=== PATIENT | male | born 1945 | race Caucasian/White ===

== ENCOUNTER 2017-11-11 01:39 | Inpatient (IN) | payer MEDICARE ==
[2017-11-11] MEDS ORDERED: niCARdipine 20MG In NaCl 0 MG/0 ML BAG ONE (02:05)
[2017-11-11] MEDS ORDERED: niCARdipine 20MG In NaCl 20 MG/200 ML BAG ONE (02:06)
[2017-11-11 02:26] LABS: #Basophils 0.1 thou/uL (0.0-0.2); #Eosinphils 0.1 thou/uL (0.0-0.7); #Lymphocytes 1.3 thou/uL (1.20-3.40); #Monocytes 0.8 thou/uL (0.11-0.59); #Neutrophils 10.2 thou/uL (1.40-6.50); %Basophils 0.7 % (0.0-1.0); %Eosinophils 0.8 % (0.0-10.0); %Lymphocytes 10.2 % (21.0-51.0); %Monocytes 6.5 % (0.0-10.0); %Neutrophils 81.8 % (42.0-75.0); Hemoglobin 13.6 g/dL (14.0-18.0); Mean Corpuscular HGB CONC 33.7 g/dL (32.0-36.0); Mean Corpuscular Hemoglobin 30.9 pg (27.0-31.0); Mean Corpuscular Volume 91.7 fl (80.0-94.0); Mean Platelet Volume 7.4 fL (7.4-10.4); Platelet Count 188 thou/uL (130-400); RBC Distribution Width 12.7 % (11.5-14.5); Red Blood Cell (RBC) Count 4.42 mill/uL (4.70-6.10); White Blood Cell (WBC) Count 12.5 thou/uL (4.8-10.8)
[2017-11-11 02:30] LABS: INR-International Normal Ratio 1.1; Prothrombin Time 14.6 SEC (12.0-14.7)
[2017-11-11 02:42] LABS: Bilirubin Negative (Negative); Blood, Urine Small (Negative); Clarity CLEAR (Clear); Glucose, Urine (Dipstick) Negative (Negative); Leukocyte Negative (Negative); Nitrite Negative (Negative); Protein, Urine (Dipstick) 30 mg/dL (Neg-Trace); Specific Gravity, Urine 1.021 (1.002-1.036); Urobilinogen 0.2 mg/dL (0.2-1.0)
[2017-11-11] MEDS ORDERED: Clopidogrel Bisulfate 75 MG TAB ONE (02:49)
[2017-11-11 02:52] LABS: Amphetamine Not Detected (NotDetected); Barbiturates Screen Not Detected (NotDetected); Benzodiazepine Screen Not Detected (NotDetected); Cocaine Metabolite Screen Not Detected (NotDetected); Medtox Control Line Valid? VALID (VALID); Medtox Reader # READER 4; Methadone Not Detected (NotDetected); Methamphetamine Not Detected (NotDetected); Opiate Screen Not Detected (NotDetected); Oxycodone Screen Not Detected (NotDetected); Phencyclidine (PCP) Not Detected (NotDetected); THC/Cannabinoid Screen Not Detected (NotDetected); Tricyclic Screen Not Detected (NotDetected)
[2017-11-11 02:53] LABS: Bacteria/HPF None Seen HPF (None Seen); Crystals/HPF None Seen HPF (Negative); Hyaline Casts/LPF NONE SEEN LPF (0-3 Hyaline); RBC/HPF None Seen HPF (0-3); Renal Epithelial None Seen HPF (0-3); Squamous Epithelial 0-3 HPF (0-3); Transitional Epithelial NONE SEEN HPF (0-3); WBC/HPF None Seen HPF (0-3); Yeast-All Forms None Seen HPF (None Seen)
[2017-11-11 03:00] LABS: ALT (SGPT) 13 U/L (8-55); AST (SGOT) 16 U/L (5-34); Albumin 3.7 g/dL (3.4-4.8); Alkaline Phosphatase 72 U/L (40-150); Anion Gap 10 mmol/L (10-20); BUN (Urea Nitrogen) 20 mg/dL (8.4-25.7); Bilirubin, Total 0.5 mg/dL (0.2-1.2); CK (CPK) 122 U/L (30-200); Calc. Creatinine Clearance 0 mL/min (70-130); Carbon Dioxide 22 mmol/L (23-31); Chloride 97 mmol/L (98-107); Estimated GFR-MDRD 75; Globulin 2.8 g/dL (2.4-3.5); Glucose 116 mg/dL (80-115); Lipase 24 U/L (8-78); Potassium 3.8 mmol/L (3.5-5.1); Protein, Total 6.5 g/dL (5.8-8.1); Sodium 125 mmol/L (136-145)
[2017-11-11 03:02] LABS: Acetaminophen Less than 6.0 mcg/mL (10.0-30.0); Alcohol Less than 10 mg/dL (Less than 10); Salicylate Less than 8.0 mg/dL (15.0-30.0)
[2017-11-11 03:03] LABS: CKMB 4.3 ng/mL (0-6.6); Troponin I 0.018 ng/mL (< 0.028)
[2017-11-11] MEDS ORDERED: Lorazepam 2 MG/ML VIAL ONE (03:03)
[2017-11-11 05:32] LABS: Troponin I 0.022 ng/mL (< 0.028)
[2017-11-11] MEDS ORDERED: Ondansetron ODT 4 MG TAB PO PRN (05:46)
[2017-11-11] MEDS ORDERED: Ondansetron HCl/PF 4 MG/2 ML Vial IVP PRN (05:46)
[2017-11-11] MEDS ORDERED: Acetaminophen 325 MG TAB PO PRN (05:46)
[2017-11-11] MEDS ORDERED: Enoxaparin Sodium 30 MG/0.3 ML SYRINGE SC SCH (05:46)
[2017-11-11] MEDS ORDERED: Carvedilol 25 MG TAB PO SCH (06:00)
[2017-11-11] MEDS ORDERED: Amlodipine 5 MG TAB PO SCH (06:00)
[2017-11-11] MEDS ORDERED: Albuterol Sulfate 2.5 mg/3 ml Neb NEB PRN (06:08)
[2017-11-11 06:17] LABS: Anion Gap 12 mmol/L (10-20); BUN (Urea Nitrogen) 17 mg/dL (8.4-25.7); Calc. Creatinine Clearance 0 mL/min (70-130); Calcium 9.5 mg/dL (7.8-10.44); Carbon Dioxide 22 mmol/L (23-31); Cardiac Risk 5.4 (Less than 4.5); Chloride 102 mmol/L (98-107); Cholesterol 249 mg/dl (< 200 Desired); Estimated GFR-MDRD 77; Glucose 124 mg/dL (80-115); HDL Cholesterol 46 mg/dL (>60 Neg Risk); LDL Cholesterol, Calculated 182 mg/dL; Potassium 3.8 mmol/L (3.5-5.1); Sodium 132 mmol/L (136-145); Triglycerides 104 mg/dL (Less than 150)
[2017-11-11 06:19] LABS: #Eosinphils 0.1 thou/uL (0.0-0.7); #Lymphocytes 1.9 thou/uL (1.20-3.40); #Monocytes 0.8 thou/uL (0.11-0.59); #Neutrophils 9.6 thou/uL (1.40-6.50); %Basophils 0.1 % (0.0-1.0); %Eosinophils 1.1 % (0.0-10.0); %Lymphocytes 15.3 % (21.0-51.0); %Monocytes 6.3 % (0.0-10.0); %Neutrophils 77.2 % (42.0-75.0); Hemoglobin 14.5 g/dL (14.0-18.0); Mean Corpuscular HGB CONC 33.5 g/dL (32.0-36.0); Mean Corpuscular Hemoglobin 30.6 pg (27.0-31.0); Mean Corpuscular Volume 91.5 fl (80.0-94.0); Mean Platelet Volume 7.7 fL (7.4-10.4); Platelet Count 196 thou/uL (130-400); RBC Distribution Width 12.6 % (11.5-14.5); Red Blood Cell (RBC) Count 4.74 mill/uL (4.70-6.10); White Blood Cell (WBC) Count 12.4 thou/uL (4.8-10.8)
--- NOTE | 2017-11-11 07:07 | CT ---
BRAIN PERFUSION: HISTORY: A 72-year-old male with right-sided facial droop, right-sided weakness, an abnormal gait, and slurred speech. TECHNIQUE: Axial blood volume, blood flow, mean transient time, and IRF brain perfusion imaging is performed, fo llowing contrast injection. FINDINGS: There is no evidence of abnormal brain perfusion noted. IMPRESSION: Normal CT brain perfusion. No evidence for abnormal infarct or penumbra. POS: [facility]
--- NOTE | 2017-11-11 07:14 | CT ---
PRELIMINARY REPORT/[facility]/EMERGENCY AFTER HOURS PROCEDURE: EXAM: CT Head Without Intravenous Contrast EXAM DATE/TIME: 11/11/2017 1:46 AM CLINICAL HISTORY: 72 years old, male; Signs and symptoms; Speech disturbance and weakness, extremity and weakness, faci al; Right; Slurred speech; Patient HX: *stroke alert*. M72, last seen normal 1900, right sided facial droop, right sided weakness, abnormal gate, slurred speech. TECHNIQUE: Axial computed tomography images of the head/brain without intravenous contrast. COMPARISON: No relevant prior studies available. FINDINGS: Brain: Minimal decreased attenuation of the supratentorial white matter is likely secondary to chroni c microvascular ischemia. No hemorrhage. Ventricles: Ventricular and subarachnoid spaces are age appropriate. Bones/joints: Unremarkable. No acute fracture. Soft tissues: Unremarkable. Vasculature: Intracranial vascular calcification. Sinuses: Mild paranasal sinus disease. Mastoid air cells: Unremarkable as visualized. No mastoid effusion. IMPRESSION: No acute intracranial abnormality. If clinical concern persists, MRI may be considered. Thank you for allowing us to participate in the care of your patient. Dictated and Authenticated by: Ryland Darden MD 11/11/2017 1:54 AM Central Time ([place] & [place]) FINAL REPORT EMERGENCY AFTER HOURS BRAIN CT SCAN WITHOUT IV CONTRAST: Date: 11/11/17 Time: 0147 hours FINDINGS/IMPRESSION: No mass, bleed, or other acute process. The report of the brain, as well as the head CTA and neck CTA were discussed with Dr. Betancourt by [facility]iology at 0221 hours on 11/11/17. Report in agreement with preliminary report given on-call by Remy. POS: [facility]
--- NOTE | 2017-11-11 07:31 | HP ---
PRIMARY CARE PHYSICIAN: Dr. Avril Stoddard, though he says he has not been to the doctor in many year s. DATE OF ADMISSION: 11/11/2017 TIME OF SERVICE: 0555 CHIEF COMPLAINT: Facial droop. HISTORY OF PRESENT ILLNESS: Mr. Fernández is a 72-year-old white male with no known past medical histo ry who presents to the emergency department via EMS for a facial droop. The patient said he was last well around 7:00 p.m. and he had acute onset of right arm paralysis, rig ht leg weakness and facial droop. He was talking on the phone to his daughter and she started notici ng he had slurred speech. She called EMS who came up to his house. On arrival they found him to hav e a right facial droop. His right upper extremity felt numb and heavy. He could not move it. His l eft leg was weak. He denies any chest pain, shortness of breath. No fevers or chills, no nausea, vo miting, diarrhea, constipation. He has had no headache, no visual changes. Blood pressure has been in the 200s/100s. Symptoms seem to improve with a nitro. The ER activated t he t-PA protocol and Dr. Guo did not think he was a candidate; therefore no t-PA was given. He was put on a Cardene drip prior to that. Blood pressure has been in the 170s to 180s. We were called f or admission. He did have a CT and CT angiogram with perfusion study that showed a possible defect i n the left MCA distribution. He was given Tylenol, Plavix, and a 500 mL bolus and he is allergic to ASPIRIN, did not receive any aspirin. PAST MEDICAL HISTORY: None. PAST SURGICAL HISTORY: Hemorrhoidectomy, multiple tooth extractions and tonsillectomy remotely. HOME MEDICATIONS: None. ALLERGIES: ASPIRIN causes a rash. FAMILY HISTORY: Negative for clotting or bleeding disorder. No immune dysfunction, no premature str okes or coronary disease. SOCIAL HISTORY: Significant for [id number]-half pack of cigarettes per day for the last 50+ years. Petty wu used to drink about a half-gallon of liquor or beer a day and did that for many years until he quit on 01/11/1989. No alcohol or IV drug use at present. REVIEW OF SYSTEMS: A 10-point review of systems was performed, negative for all systems except as pe r HPI. PHYSICAL EXAMINATION: VITAL SIGNS: Temperature is afebrile, pulse 80, blood pressure 210/103, respiratory rate 18, sat 96% on room air. GENERAL: He is awake. He is alert. He is oriented x3. He has a visible left facial droop. He is in no acute distress. HEENT: Normocephalic, atraumatic. Pupils equal and reactive to light bilaterally, mucosa moist. No visible lesion or thrush. NECK: Supple, without lymphadenopathy, JVD or thyromegaly. Normal carotid upstrokes without bruits. CHEST: Lungs had good air movement bilaterally. He has a prolonged expiratory phase and diffuse whe ezing throughout. He has no crackles. CARDIOVASCULAR: Tachycardic in the 90s-100s, but regular. There is normal S1, S2. There is no S3, S4. No audible murmurs. ABDOMEN: Soft, it is nontender, nondistended, no mass or organomegaly. He has good bowel sounds. EXTREMITIES: Show no cyanosis, no clubbing. He has got trace edema to the bilateral lower extremiti es. SKIN: Warm, moist and well perfused. He has no other rashes or lesions. MUSCULOSKELETAL: Normal to inspection. Joints appeared normal. He does not have any inflammation o r palpable effusions. NEUROLOGIC: He has a left facial droop that spares the forehead. The remainder of his cranial nerve s appear to be intact. He has got a dense right upper extremity hemiplegia, but says he can feel to light touch throughout his arm. He has a 3-1/2-4/5 strength of his right lower extremity. Left side appears normal. LABORATORY DATA: Sodium is 125, potassium 3.8, chloride 97, bicarbonate 22, BUN 20, creatinine 0.99, glucose 116, and calcium of 9.0. Liver functions are completely within normal limits. CBC showed a white count of 12.5, hemoglobin 13.6, hematocrit of 40.5, and platelet count is 138,000. He has 82% granulocytes and 10% lymphocytes. Cardiac biomarkers were normal. CK-MB of 4.3, troponin I 0.018 followed by 0.022. BNP was 329.7. I NR 1.1 and TSH of 2.47. RADIOGRAPHIC STUDIES: CT and CT angio as above. ASSESSMENT AND PLAN: 1. 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 The patient is allergic to ASPIRIN, bu t did get Plavix. Follow up on the official reports of the CT and CT angio. PT, OT and ST consults have been ordered, will ask Neurology to evaluate. The patient was placed on Plavix and on atorvasta tin 20 mg daily. Consulted case management for rehabilitation and placed a rehab screen. 2. Tobacco abuse. The patient does continue to smoke. He was counseled regarding need for cessatio n. 3. Hypertensive urgency: The patient has stroke symptoms and a very elevated blood pressure. He is on Cardene drip. We will start him on Coreg 12.5 b.i.d. and Norvasc 5 per day and have hydralazine p.r.n. systolic pressure greater than 180. We will try to get him off the Cardene drip. He is curre ntly being admitted to the ICU. 4. Essential hypertension. The patient likely has longstanding hypertension. We will get a 2-D ech ocardiogram to assess cardiac function. 5. Hyponatremia. Sodium is 125. Do not know if this is new or not. We will continue to monitor an d recheck tomorrow.
--- NOTE | 2017-11-11 07:42 | RAD ---
SINGLE VIEW OF THE CHEST: Comparison: 05-14-05 History: Altered mental status. Stroke alert. FINDINGS: Single view of the chest shows a normal sized cardiomediastinal silhouette with atherosclerotic calci fications in the aorta. There is no evidence of consolidation, mass, or pleural effusions. Degenerati ve changes are seen in the spine. IMPRESSION: No evidence of acute cardiopulmonary disease. POS: [facility]
[2017-11-11] MEDS ORDERED: Prevnar 13-Val Conj/PF 0.5 ML SYRINGE IM ONE (08:00)
[2017-11-11] MEDS: hydrALAZINE 20 MG/ML VIAL SLOW IVP PRN ×2 (08:23→15:42)
[2017-11-11] MEDS: Famotidine 20 MG TAB PO SCH ×2 (08:24→20:52)
[2017-11-11] MEDS ORDERED: Aspirin 325 MG TAB PO SCH (09:00)
--- NOTE | 2017-11-11 10:14 | PDOC.EVN ---
Event Note - Event Note Event Note: 72 M admitted with R hemiparesis and facial droop, likely 2/[address] Brain showed no hemorrhage. 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 He had R hemiparsis and facial droop on examination, as well as a severely elevated BP on admission. BP improving, Statin started and patient not on ASA due to allergy. Neurology will review patient. He will likely require an MRI brain and aggressive PT/OT. Will follow neurology and cardiologyrecs.
[2017-11-11] MEDS ORDERED: ISOVUE-370 76%-LOCM 1 ML ONE (14:43)
[2017-11-11] MEDS: Carvedilol 25 MG TAB PO SCH (15:42)
[2017-11-11] MEDS: Atorvastatin Calcium 20 MG TAB PO SCH (20:52)
--- NOTE | 2017-11-11 22:10 | CON ---
DATE OF CONSULTATION: 11/11/2017 NEUROLOGY CONSULTATION CONSULTING PHYSICIAN: Hospitalist service. IMPRESSION: 1. Probable lacunar infarction with right hemiparesis. 2. Tobacco use. 3. Probable hypertension. PLAN: 1. Plavix 75 mg per day. 2. Address hyperlipidemia. 3. Echocardiogram. 4. Rehab screening. HISTORY OF PRESENT ILLNESS: Mr. Rendon is a 72-year-old man who developed right-sided weakness gisel or to admission. He came in and outside the window for tPA and his CTA were negative for any signs o f a clot. There was no sign of hemorrhage on CT. He was admitted to ICU for monitoring. His sympto ms have not improved. He denies history of any similar symptoms. He has not seen a doctor in quite some time and was not taking any medication. PAST MEDICAL HISTORY: Otherwise unknown. ALLERGIES: ASPIRIN. SOCIAL HISTORY: One pack per day tobacco use. REVIEW OF SYSTEMS: No complaint of headache, nausea, vomiting, chest pain, numbness, tingling, doubl e vision, or difficulty swallowing. PHYSICAL EXAMINATION: GENERAL: He is a thin elderly man sitting in a chair in no distress. VITAL SIGNS: Blood pressure 162/63, pulse 80, respirations 20. He is afebrile. HEENT: Pupils equal and reactive. Conjunctivae clear. Oropharynx is clear. NECK: Supple. EXTREMITIES: No cyanosis. NEUROLOGIC: Alert and cooperative. Speech is mildly dysarthric, it was fluent in character though. There is prominent right facial droop. Motor exam showed 0/5 strength in the right arm. He had iris e proximal movement in the right leg. There is no distal movement elicited. Sensation was intact to light touch. No abnormal movements were seen. Gait was not testable. LABORATORY STUDIES: EKG shows normal sinus rhythm. SUMMARY: This gentleman has a fairly dense right hemiparesis likely secondary to small vessel ischem ic event. Agree with treatment and plan beyond this for rehabilitation.
[2017-11-11] MEDS ORDERED: traZODone HCl 50 MG TAB PO SCH (23:15)
[2017-11-12] MEDS: Nicotine 7 MG PATCH TOP SCH ×2 (00:37→23:30)
[2017-11-12 05:34] LABS: #Basophils 0.1 thou/uL (0.0-0.2); #Eosinphils 0.2 thou/uL (0.0-0.7); #Neutrophils 8.1 thou/uL (1.40-6.50); %Basophils 0.5 % (0.0-1.0); %Eosinophils 2.1 % (0.0-10.0); %Lymphocytes 17.8 % (21.0-51.0); %Monocytes 8.4 % (0.0-10.0); %Neutrophils 71.3 % (42.0-75.0); Hemoglobin 14.1 g/dL (14.0-18.0); Mean Corpuscular Hemoglobin 31.3 pg (27.0-31.0); Mean Corpuscular Volume 91.9 fl (80.0-94.0); Mean Platelet Volume 7.2 fL (7.4-10.4); Platelet Count 180 thou/uL (130-400); RBC Distribution Width 12.7 % (11.5-14.5); White Blood Cell (WBC) Count 11.4 thou/uL (4.8-10.8)
[2017-11-12 05:42] LABS: Anion Gap 9 mmol/L (10-20); BUN (Urea Nitrogen) 17 mg/dL (8.4-25.7); Calc. Creatinine Clearance 47 mL/min (70-130); Calcium 9.4 mg/dL (7.8-10.44); Carbon Dioxide 24 mmol/L (23-31); Chloride 102 mmol/L (98-107); Estimated GFR-MDRD 61; Glucose 98 mg/dL (80-115); Potassium 3.9 mmol/L (3.5-5.1); Sodium 131 mmol/L (136-145)
[2017-11-12] MEDS: hydrALAZINE 20 MG/ML VIAL SLOW IVP PRN (07:14)
[2017-11-12] MEDS: Carvedilol 25 MG TAB PO SCH ×2 (07:38→16:58)
[2017-11-12] MEDS: Famotidine 20 MG TAB PO SCH (09:15)
[2017-11-12] MEDS: Amlodipine 5 MG TAB PO SCH (09:15)
[2017-11-12] MEDS: Clopidogrel Bisulfate 75 MG TAB PO SCH (09:16)
[2017-11-12] MEDS: Enoxaparin Sodium 30 MG/0.3 ML SYRINGE SC SCH (09:16)
--- NOTE | 2017-11-12 11:06 | CON ---
DATE OF CONSULTATION: 11/11/2017 HISTORY OF PRESENT ILLNESS: Mr. Fernández is a 72-year-old male. Unfortunately, Mr. Fernández had right-sided weakness and dysarthria that have been present for quite s ome time prior to coming to the hospital. He subsequently was admitted. He was felt to have thrombotic CVA. He did not qualify for TPA because of the time delay in getting to the hospital. He was hypertensive, placed on a Cardene drip. This has been weaned off. He has a left middle cerebral artery abnormality on CT. He was treated with Plavix since he has an aspirin allergy. He is clinically stable at the time of my consultation, had no complaints, although he is worried abo ut getting all of his neurological faculties back. PAST MEDICAL HISTORY: Reportedly unremarkable. He has had a herniorrhaphy and a tonsillectomy in past. SOCIAL HISTORY: He does not have a doctor. He just quit smoking, i.e., right when he came to the hospital. 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 ALLERGIES: He reports ASPIRIN as a drug allergy. FAMILY HISTORY: Negative for lung disease in early age. REVIEW OF SYSTEMS: 10-point review of systems is otherwise negative. PHYSICAL EXAMINATION: VITAL SIGNS: He is afebrile, heart rate 67, respiratory rate is 20, oximetry is 99, blood pressure 1 34/55. NEUROLOGIC: He is flaccid. His right upper extremity is weak. He does have some movement in his ri ght lower extremity. He is dysarthric, but can form words and answers questions reasonably quickly. HEENT: His pupils are equal. Sclerae are anicteric. He has a facial droop. NECK: Supple. No lymphadenopathy. LUNGS: Clear. HEART: Regular rhythm. S1 and S2 are normal. No murmur or gallop. ABDOMEN: Soft and nontender. EXTREMITIES: Without clubbing, cyanosis, or edema. LABORATORY DATA: White count 12.4, hemoglobin 14.5, platelets 196. Sodium 132, potassium 3.8, chloride 102, bicarbonate 22, BUN 17, creatinine 0.96, glucose 124. Drug screen was negative. I am not really sure why he had a drug screen. BNP was 329. IMPRESSION: 1. Thrombotic cerebrovascular accident. 2. Hypertension. PLAN: Supportive care, physical therapy, eventual placement for physical therapy and rehabilitation. He appears to be stable at this time. TIME SPENT: This is a 70-minute consult with greater than 50% of the time spent on the unit coordina ting care.
--- NOTE | 2017-11-12 11:37 | CT ---
PRELIMINARY REPORT/[facility]/EMERGENCY AFTER HOURS PROCEDURE: Addendum created by Ryland Darden MD on 11/11/2017 2:21 AM Central Time ([place]) The findings were ve rbally communicated via telephone conference with ELLIOT FERNANDEZ at 2:21 AM CDT on 11/11/2017. Initial Report created on 11/11/2017 2:18 AM Central Time ([place]) EXAM: CT Angiography Head With Intravenous Contrast CLINICAL HISTORY: 72 years old, male; Signs and symptoms; Speech disturbance and weakness; Slurred speech; Patient HX: *stroke alert*. M72, last seen normal 1900, right sided facial droop, right sided weakness, abnormal gate, slurred speech. TECHNIQUE: Axial computed tomographic angiography images of the head with intravenous contrast using CT angiogra phy protocol. CONTRAST: 100 mL of ISOVUE 370 administered intravenously. COMPARISON: No relevant prior studies available. FINDINGS: Right internal carotid artery: Mild calcification involving the right carotid siphon without signific ant stenosis. No aneurysm. Right anterior cerebral artery: Unremarkable. No occlusion or significant stenosis. No aneurysm. Right middle cerebral artery: Unremarkable. No occlusion or significant stenosis. No aneurysm. Right posterior cerebral artery: Unremarkable. No occlusion or significant stenosis. No aneurysm. Right vertebral artery: Unremarkable as visualized. Left internal carotid artery: Mild calcification involving the left carotid siphon without significan t stenosis. No aneurysm. Left anterior cerebral artery: Unremarkable. No occlusion or significant stenosis. No aneurysm. Left middle cerebral artery: Unremarkable. No occlusion or significant stenosis. No aneurysm. Left posterior cerebral artery: Unremarkable. No occlusion or significant stenosis. No aneurysm. Left vertebral artery: Unremarkable as visualized. Basilar artery: Unremarkable. No occlusion or significant stenosis. No aneurysm. IMPRESSION: No hemodynamically significant stenosis or large vessel occlusion. EXAM: CT Angiography Neck With Intravenous Contrast EXAM DATE/TIME: 11/11/2017 1:52 AM CLINICAL HISTORY: 72 years old, male; Signs and symptoms; Speech disturbance and weakness; Slurred speech; Patient HX: *stroke alert*. M72, last seen normal 1900, right sided facial droop, right sided weakness, abnormal gate, slurred speech. TECHNIQUE: Axial computed tomographic angiography images of the neck with intravenous contrast using CT angiogra phy protocol. CONTRAST: 100 mL of ISOVUE 370 administered intravenously. COMPARISON: CT Brain WO Con 2017-11-11 01:46 FINDINGS: VASCULATURE: Right common carotid artery: Irregularity involving the right common carotid artery without hemodynam ically significant stenosis. No dissection or occlusion. Right internal carotid artery: There is calcific and atheromatous plaquing of the proximal right cerv ical ICA. No hemodynamically significant stenosis. No dissection or occlusion. Right external carotid artery: Mild stenosis of the proximal right ECA. No occlusion. Right vertebral artery: Unremarkable. No significant stenosis. No dissection or occlusion. Left common carotid artery: Irregularity involving the left common carotid artery with mild nonhemody namically significant stenosis. No dissection or occlusion. Left internal carotid artery: Calcific and atheromatous plaquing of the proximal left cervical ICA. Stenosis measures between 50% and 60%. No dissection or occlusion. Left external carotid artery: Mild stenosis of the proximal left ECA. No occlusion. Left vertebral artery: Mild left vertebral artery V1 stenosis. No dissection or occlusion. Other vasculature: There is atheromatous irregularity involving the thoracic aorta. NECK: Bones/joints: Degenerative change involving the spine. No acute fracture. No dislocation. Soft tissues: Unremarkable as visualized. No mass. Larynx: 5 mm cystic lesion at the left vallecula. Pleural space: Scarring and emphysema without visible pneumothorax. CAROTID STENOSIS REFERENCE USING NASCET CRITERIA: % ICA stenosis = (1 - narrowest ICA diameter/diameter of distal cervical ICA) x 100. Mild - <50% stenosis. Moderate - 50-69% stenosis. Severe - 70-94% stenosis. Near occlusion - 95-99% stenosis. Occluded - 100% stenosis. 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 Mild left V1 stenosis. Mild stenosis involving the bilateral proximal ECAs. Thank you for allowing us to participate in the care of your patient. Dictated and Authenticated by: Ryland Darden MD 11/11/2017 2:18 AM Central Time ([place]) FINAL REPORT BRAIN CTA INCLUDING 3D RENDERING: NECK CTA INCLUDIND 3D RENDERING: FINDINGS: BRAIN: No evidence for significant intracranial aneurysm or intracranial occlusion. NECK: Moderate stenosis of the left ICA. Mild left vertebral stenosis. Mild bilateral ECA stenosis . BRAIN PERFUSION: HISTORY: A 72-year-old male with right-sided facial droop, right-sided weakness, an abnormal gait, and slurred speech. TECHNIQUE: Axial blood volume, blood flow, mean transient time, and IRF brain perfusion imaging is performed, fo llowing contrast injection. FINDINGS: There is no evidence of abnormal brain perfusion noted. IMPRESSION: Normal CT brain perfusion. No evidence for abnormal infarct or penumbra. Agree with [facility].
--- NOTE | 2017-11-12 14:35 | PDOC.PN ---
- Subjective Encounter Start Date: 11/12/17 Encounter Start Time: 14:38 Subjective: Reports being able to speak better but still slurred -: No acute events overnight. - Objective Resuscitation Status: Resuscitation Status FULL:Full Resuscitation MAR Reviewed: Yes Vital Signs & Weight: Vital Signs (12 hours) Temp Pulse Pulse Pulse Resp BP BP 11/12/17 12:00 97.8 F 11/12/17 11:06 62 19 11/12/17 10:12 64 62 148/73 H 11/12/17 09:15 79 11/12/17 08:00 97.5 F L 79 16 11/12/17 07:14 70 206/100 H 11/12/17 07:12 77 18 11/12/17 04:00 98.1 F 11/12/17 03:06 70 16 BP Pulse Ox Pulse Ox Pulse Ox 11/12/17 12:00 11/12/17 11:06 98 11/12/17 10:12 132/69 98 98 11/12/17 09:15 11/12/17 08:00 11/12/17 07:14 11/12/17 07:12 98 11/12/17 04:00 11/12/17 03:06 98 Weight Weight 126 lb 1.671 oz Most Recent Monitor Data Heart Rate from ECG 68 NIBP 148/73 NIBP BP-Mean 90 Respiration from ECG 21 SpO2 99 I&O: 11/11/17 11/12/17 11/13/17 06:59 06:59 06:59 Intake Total 60 1410 440 Output Total 400 1940 250 Balance -340 -530 190 Result Diagrams: 11/12/17 05:17 11/12/17 05:17 Phys Exam - Physical Examination Constitutional: NAD HEENT: PERRLA, moist MMs, sclera anicteric, TM's clear Neck: no JVD, supple, full ROM Respiratory: no wheezing, no rales, no rhonchi, clear to auscultation bilateral Cardiovascular: RRR (s1 s2), no significant murmur, no rub Gastrointestinal: soft, non-tender, no distention, positive bowel sounds Musculoskeletal: no edema, pulses present AO x 3 w R hemiparesis and L facial droop Skin: no rash, normal turgor Dx/Plan (1) CVA (cerebral vascular accident) Code(s): I63.9 - CEREBRAL INFARCTION, UNSPECIFIED Status: Acute Qualifiers: CVA mechanism: thrombosis Laterality of affected vessel: unspecified Comment: W residual L hemiparesis. 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 Neuro as well. Started on plavix, statins. (2) Hypertensive urgency Code(s): I16.0 - HYPERTENSIVE URGENCY Status: Acute Comment: Improving. Nicardipine drip discontinued and started on PO antihypertensives. - Plan cont current plan of care, PT/OT, social science teacher, speech therapy, DVT proph w/ lovenox * . Review of Systems - Medications/Allergies Allergies/Adverse Reactions: Allergies Allergy/AdvReac Type Severity Reaction Status Date / Time aspirin Allergy Verified 11/11/17 05:28 Medications: Current Medications Acetaminophen (Tylenol) 650 mg PO Q4H PRN PRN Reason: Headache/Fever or Pain Albuterol Sulfate (Ventolin) 2.5 mg NEB Q2H PRN PRN Reason: Wheezing Albuterol/Ipratropium (Duoneb) 3 ml NEB [id number] [facility] Last Admin: 11/12/17 11:06 Dose: 3 ml Amlodipine Besylate (Norvasc) 5 mg PO DAILY [facility] Last Admin: 11/12/17 09:15 Dose: 5 mg Atorvastatin Calcium (Lipitor) 20 mg PO HS [facility] Last Admin: 11/11/17 20:52 Dose: 20 mg Carvedilol (Coreg) 12.5 mg PO BID-WM [facility] Last Admin: 11/12/17 07:38 Dose: 12.5 mg Clopidogrel Bisulfate (Plavix) 75 mg PO DAILY [facility] Last Admin: 11/12/17 09:16 Dose: 75 mg Enoxaparin Sodium (Lovenox) 30 mg SC 0900 [facility] Last Admin: 11/12/17 09:16 Dose: 30 mg Famotidine (Pepcid) 20 mg PO 0900 [facility] Hydralazine HCl (Apresoline) 10 mg SLOW IVP Q3H PRN PRN Reason: SBP > 180 Last Admin: 11/12/17 07:14 Dose: 10 mg Nicotine (Nicoderm Patch) 7 mg TOP Q24HR [facility] Last Admin: 11/12/17 00:37 Dose: 7 mg Ondansetron HCl (Zofran Odt) 4 mg PO Q6H PRN PRN Reason: Nausea/Vomiting Ondansetron HCl (Zofran) 4 mg IVP Q6H PRN PRN Reason: Nausea/Vomiting
--- NOTE | 2017-11-12 16:33 | PRG ---
DATE OF SERVICE: 11/12/2017 SUBJECTIVE: Mr. Rendon has no new complaints. His significant other feels his speech is better th an it was 3 days ago. PHYSICAL EXAMINATION: VITAL SIGNS: He is afebrile, heart rate 62, respiratory rate 19, oximetry is 98% on room air, blood pressure 148/73. LUNGS: Clear. HEART: Regular rhythm. ABDOMEN: Soft. MUSCULOSKELETAL: He still has limited movement of his right lower extremity. None with his right up per extremity. NEUROLOGIC: His speech is about the same as yesterday. He word searches and is still dysarthric. IMPRESSION AND PLAN: 1. Status post thrombotic CVA with delayed presentation in the emergency room, clinically stable. H e probably move to stroke unit soon. 2. Hypertension. Blood pressure is better controlled.
[2017-11-12 17:58] VITALS: BMI 19.9
[2017-11-12] MEDS: Atorvastatin Calcium 20 MG TAB PO SCH (20:45)
[2017-11-12] MEDS ORDERED: Melatonin 3 MG TAB PO PRN (22:17)
[2017-11-13 05:40] LABS: #Eosinphils 0.2 thou/uL (0.0-0.7); #Lymphocytes 1.6 thou/uL (1.20-3.40); #Monocytes 0.8 thou/uL (0.11-0.59); #Neutrophils 6.4 thou/uL (1.40-6.50); %Basophils 0.2 % (0.0-1.0); %Lymphocytes 17.8 % (21.0-51.0); %Monocytes 9.1 % (0.0-10.0); %Neutrophils 70.9 % (42.0-75.0); Mean Corpuscular HGB CONC 32.7 g/dL (32.0-36.0); Mean Corpuscular Volume 91.6 fl (80.0-94.0); Mean Platelet Volume 7.4 fL (7.4-10.4); Platelet Count 194 thou/uL (130-400); RBC Distribution Width 12.9 % (11.5-14.5); Red Blood Cell (RBC) Count 4.66 mill/uL (4.70-6.10); White Blood Cell (WBC) Count 9.1 thou/uL (4.8-10.8)
[2017-11-13 05:50] LABS: Anion Gap 12 mmol/L (10-20); BUN (Urea Nitrogen) 21 mg/dL (8.4-25.7); Calc. Creatinine Clearance 52 mL/min (70-130); Calcium 9.1 mg/dL (7.8-10.44); Carbon Dioxide 22 mmol/L (23-31); Chloride 104 mmol/L (98-107); Estimated GFR-MDRD 65; Glucose 97 mg/dL (80-115); Potassium 4.1 mmol/L (3.5-5.1); Sodium 134 mmol/L (136-145)
[2017-11-13] MEDS: Carvedilol 25 MG TAB PO SCH ×2 (08:27→16:01)
[2017-11-13] MEDS: Clopidogrel Bisulfate 75 MG TAB PO SCH (08:27)
[2017-11-13] MEDS: Enoxaparin Sodium 30 MG/0.3 ML SYRINGE SC SCH (08:28)
[2017-11-13] MEDS: Amlodipine 5 MG TAB PO SCH (08:28)
[2017-11-13] MEDS: hydrALAZINE 20 MG/ML VIAL SLOW IVP PRN (08:29)
[2017-11-13] MEDS ORDERED: Famotidine 20 MG TAB PO SCH (09:00)
--- NOTE | 2017-11-13 14:34 | PDOC.PN ---
- Subjective Encounter Start Date: 11/13/17 Encounter Start Time: 14:35 Subjective: RTeports feeling better. No complaints -: No acute events overnight. - Objective Resuscitation Status: Resuscitation Status FULL:Full Resuscitation MAR Reviewed: Yes Vital Signs & Weight: Vital Signs (12 hours) Temp Pulse Resp BP BP Pulse Ox 11/13/17 13:56 71 16 99 11/13/17 12:17 97.3 F L 68 24 H 154/76 H 98 11/13/17 08:29 71 11/13/17 08:28 71 11/13/17 08:00 96 F L 71 20 11/13/17 07:16 96.0 F L 71 20 202/101 H 100 11/13/17 07:13 95 11/13/17 07:11 72 16 95 11/13/17 03:28 98.2 F 61 16 144/63 H 98 Weight Weight 131 lb Most Recent Monitor Data Heart Rate from ECG 72 NIBP 147/72 NIBP BP-Mean 109 Respiration from ECG 24 SpO2 91 I&O: 11/12/17 11/13/17 11/14/17 06:59 06:59 06:59 Intake Total 1410 690 Output Total 1940 1300 440 Balance -530 -610 -440 Result Diagrams: 11/13/17 05:28 11/13/17 05:28 Additional Labs: Accuchecks 11/13/17 11:23 POC Glucose 105 Phys Exam - Physical Examination Constitutional: NAD HEENT: PERRLA, moist MMs, sclera anicteric, oral pharynx no lesions Neck: no JVD, supple, full ROM Respiratory: no wheezing, no rales, no rhonchi, clear to auscultation bilateral Cardiovascular: RRR, no significant murmur, no rub Gastrointestinal: soft, non-tender, no distention, positive bowel sounds Musculoskeletal: no edema, pulses present Neurological: non-focal Psychiatric: normal affect, A&O x 3 Skin: no rash, normal turgor Dx/Plan (1) CVA (cerebral vascular accident) Code(s): I63.9 - CEREBRAL INFARCTION, UNSPECIFIED Status: Acute Qualifiers: CVA mechanism: thrombosis Laterality of affected vessel: unspecified Comment: Stable. Participating in therapy. Has residual L hemiparesis. 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 Neuro as well. Continue plavix, statins. pt allergic to ASA. (2) HTN (hypertension) Code(s): I10 - ESSENTIAL (PRIMARY) HYPERTENSION Status: Acute Qualifiers: Hypertension type: essential hypertension Qualified Code(s): I10 - Essential (primary) hypertension Comment: Controlled. Continue current PO regimen. (3) Hypertensive urgency Code(s): I16.0 - HYPERTENSIVE URGENCY Status: Resolved Comment: Improving. Nicardipine drip discontinued and started on PO antihypertensives. - Plan cont current plan of care, PT/OT, social services manager, speech therapy, out of bed/ ambulate, DVT proph w/heparin * . Review of Systems - Medications/Allergies Allergies/Adverse Reactions: Allergies Allergy/AdvReac Type Severity Reaction Status Date / Time aspirin Allergy Verified 11/11/17 05:28 Medications: Current Medications Acetaminophen (Tylenol) 650 mg PO Q4H PRN PRN Reason: Headache/Fever or Pain Albuterol Sulfate (Ventolin) 2.5 mg NEB Q2H PRN PRN Reason: Wheezing Albuterol/Ipratropium (Duoneb) 3 ml NEB [id number] [facility] Last Admin: 11/13/17 13:56 Dose: 3 ml Amlodipine Besylate (Norvasc) 5 mg PO DAILY [facility] Last Admin: 11/13/17 08:28 Dose: 5 mg Atorvastatin Calcium (Lipitor) 20 mg PO HS [facility] Last Admin: 11/12/17 20:45 Dose: 20 mg Carvedilol (Coreg) 12.5 mg PO BID-WM [facility] Last Admin: 11/13/17 08:27 Dose: 12.5 mg Clopidogrel Bisulfate (Plavix) 75 mg PO DAILY [facility] Last Admin: 11/13/17 08:27 Dose: 75 mg Enoxaparin Sodium (Lovenox) 30 mg SC 0900 [facility] Last Admin: 11/13/17 08:28 Dose: 30 mg Famotidine (Pepcid) 20 mg PO 0900 [facility] Last Admin: 11/13/17 08:28 Dose: 20 mg Hydralazine HCl (Apresoline) 10 mg SLOW IVP Q3H PRN PRN Reason: SBP > 180 Last Admin: 11/13/17 08:29 Dose: 10 mg Melatonin (Melatonin) 3 mg PO HS PRN PRN Reason: Insomnia Last Admin: 11/12/17 23:30 Dose: 3 mg Nicotine (Nicoderm Patch) 7 mg TOP Q24HR [facility] Last Admin: 11/12/17 23:30 Dose: 7 mg Ondansetron HCl (Zofran Odt) 4 mg PO Q6H PRN PRN Reason: Nausea/Vomiting Ondansetron HCl (Zofran) 4 mg IVP Q6H PRN PRN Reason: Nausea/Vomiting
[2017-11-13] MEDS ORDERED: Polyethylene Glycol 3350 17 GM Packet PO SCH (15:49)
[2017-11-13 15:59] VITALS: BP 157/69; TEMP 97.4
--- NOTE | 2017-11-13 21:44 | PRG ---
DATE OF SERVICE: 11/13/2017 SUBJECTIVE: Neville Fernández was evaluated today. He actually was focused on trying to have a bowel m ovement. He is in no distress. He had 2 nurses to get him into the bathroom. OBJECTIVE: VITAL SIGNS: His vital signs have been stable. LUNGS: His lungs are clear. HEART: Regular rhythm. ABDOMEN: Soft. IMPRESSION: Thrombotic cerebrovascular accident. PLAN: Rehab.
--- NOTE | 2017-11-14 02:15 | DIS ---
DATE OF ADMISSION: 11/11/2017 DATE OF DISCHARGE: 11/13/2017 DISCHARGE DIAGNOSES: Acute ischemic stroke, hypertension, hypertensive urgency. HISTORY OF PRESENT ILLNESS: Mr. Fernández is a 72-year-old male with no known past medical history who presented to the emergency room via EMS due to a facial droop. Last known normal was 7:00 p.m. the day before admission, he had an acute onset of right arm paralysis, right leg weakness, and facial dr oop. He was talking on the phone to his daughter when she started noticing his speech was becoming s lurred. She called EMS who came up to his house and noticed he had a right facial droop. Right uppe r extremity felt normal, but heavy, was unable to move it along with weakness of his legs. He denied any chest pain, shortness of breath, fevers or chills. No vomiting, diarrhea, or constipation. He had no headache or visual changes. His blood pressure was found to be in the 200s/100s. He was give n some nitro paste which improved his blood pressure. ER activated a tPA protocol and Dr. Guo's ev aluated the patient and did not think he was a candidate; therefore no tPA was given. He was put on a Cardene drip prior to that. Blood pressure was in the 170s to 180s when Internal Medicine was call ed for admission. He had a CT brain and CT angiogram with perfusion study, which showed a possible d efect in the left MCA distribution, was given Tylenol, Plavix since he was allergic to ASPIRIN on a b olus of 500 mL. HOSPITAL COURSE: The patient was admitted to the ICU due to his markedly elevated blood pressure and was started on a Cardene drip and eventually weaned off. When he was deemed stable, he was transfer red to the floors where he had a review by neurologist, recommended continuing on Plavix, statin, and rehabilitation. 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 The patient responded to therapy and was de emed stable to be discharged for further rehabilitation at a lower level of care. DISCHARGE MEDICATIONS: Acetaminophen 650 mg every 4 hours as needed for headache, fever, or pain; al buterol sulfate 2.5 mg q.12 hours as needed for wheezing, amlodipine 5 mg daily, atorvastatin 20 mg a t bedtime, carvedilol 12.5 mg twice a day with meals, Plavix 75 mg daily, famotidine 20 mg daily, ipr atropium/albuterol sulfate 3 mL nebulized q.4 hours, melatonin 3 mg at bedtime as needed, nicotine 7 mg topically q.24 hours, polyethylene glycol 17 grams daily. PHYSICAL EXAMINATION: GENERAL: He was examined on the day of discharge. VITAL SIGNS: Temperature 97.4, pulse rate 71, oxygen saturation 97% on room air, respiration rate 20 , blood pressure 157/69. For further details of physical examination, [facility] LABORATORY DATA: WBC 9.1, hemoglobin 14, platelets 194. Sodium 134, potassium 4.1, chloride 104, ca rbon dioxide 22, anion gap 12, BUN 21, creatinine 1.11. IMAGING: Chest x-ray, brain CT, head/neck CT with brain perfusion, CT angiography as described in HP I. CONSULTS: Neurology, Pulmonology. PROCEDURES: None. CONDITION AT DISCHARGE: Stable and improved. DIET: Heart healthy, low sodium. ACTIVITY: To resume as tolerated and as directed by PT/OT. CARE GOALS: To follow up with primary care physician within 1 week of discharge for repeat labs. DISCHARGE TIME: 65 minutes including chart review and documentation.
[2017-11-14] MEDS ORDERED: Polyethylene Glycol 3350 17 GM Packet PO SCH (09:00)
== END 2017-11-13 18:20 | DRG 65 ==
LOC: ERS 01:39 → CCU 03:38 → 2SE 11-12 17:23
PROVIDERS: ADMIT Internal Medicine Infectious Disease; ATTEND Internal Medicine Infectious Disease
DX: R47.1 Dysarthria and anarthria; R29.810 Facial weakness; F17.210 Nicotine dependence, cigarettes, uncomplicated; I10 Essential (primary) hypertension; E87.1 Hypo-osmolality and hyponatremia; I63.9 Cerebral infarction, unspecified; I16.0 Hypertensive urgency; G81.01 Flaccid hemiplegia affecting right dominant side
CPT/HCPCS: 0042T; 36415; 36416; 70450; 70496; 70498; 71045; 80048; 80053; 80061; 80306; 80307; 81003; 81015; 82553; 83690; 83735; 83880; 84443; 84484; 85025; 85610; 85730; 93005; 93306; 94640; 96365; 96366; 96375; G8978-GP-CL; G8979-GP-CJ; G8987-GO-CM; G8988-GO-CK; G8996-GN-CJ; G8997-GN-CH; G8997-GN-CJ; J0360; J1650; J2060; J2405; J7620

== ENCOUNTER 2018-03-11 22:29 | Inpatient (IN) | payer MEDICARE ==
[~2018-03-11 22:29] MED LIST: ISOVUE-370 76%-LOCM 1 ML ONE
[2018-03-11 23:17] LABS: #Eosinphils 0.1 thou/uL (0.0-0.7); #Lymphocytes 0.6 thou/uL (1.20-3.40); #Monocytes 0.7 thou/uL (0.11-0.59); #Neutrophils 11.1 thou/uL (1.40-6.50); %Eosinophils 0.6 % (0.0-10.0); %Lymphocytes 4.6 % (21.0-51.0); %Monocytes 5.4 % (0.0-10.0); %Neutrophils 89.4 % (42.0-75.0); Hemoglobin 11.1 g/dL (14.0-18.0); Mean Corpuscular HGB CONC 34.6 g/dL (32.0-36.0); Mean Corpuscular Hemoglobin 32.5 pg (27.0-31.0); Mean Corpuscular Volume 93.9 fL (78.0-98.0); Mean Platelet Volume 6.9 fL (7.4-10.4); Platelet Count 187 thou/uL (130-400); Red Blood Cell (RBC) Count 3.42 mill/uL (4.70-6.10); White Blood Cell (WBC) Count 12.4 thou/uL (4.8-10.8)
[2018-03-11 23:40] LABS: ALT (SGPT) 252 U/L (8-55); AST (SGOT) 394 U/L (5-34); Albumin 3.7 g/dL (3.4-4.8); Alkaline Phosphatase 183 U/L (40-150); Anion Gap 14 mmol/L (10-20); BUN (Urea Nitrogen) 27 mg/dL (8.4-25.7); Calc. Creatinine Clearance 0 mL/min (70-130); Calcium 8.6 mg/dL (7.8-10.44); Carbon Dioxide 20 mmol/L (23-31); Chloride 106 mmol/L (98-107); Estimated GFR-MDRD 58; Globulin 2.3 g/dL (2.4-3.5); Glucose 126 mg/dL (80-115); Potassium 3.6 mmol/L (3.5-5.1); Sodium 136 mmol/L (136-145)
[2018-03-11 23:54] LABS: Lipase 1967 U/L (8-78)
[2018-03-12 00:02] LABS: CKMB 2.1 ng/mL (0-6.6); Troponin I Less than 0.010 ng/mL (< 0.028)
[2018-03-12] MEDS ORDERED: Ondansetron HCl/PF 4 MG/2 ML Vial ONE (00:09)
[2018-03-12 00:45] LABS: Bilirubin Negative (Negative); Blood, Urine Negative (Negative); Clarity CLEAR (Clear); Glucose, Urine (Dipstick) Negative (Negative); Leukocyte Negative (Negative); Nitrite Negative (Negative); Protein, Urine (Dipstick) 30 mg/dL (Neg-Trace); Specific Gravity, Urine 1.026 (1.002-1.036)
[2018-03-12 00:49] LABS: Bacteria/HPF None Seen HPF (None Seen); Hyaline Casts/LPF 0-3 HYALINE CAST LPF (0-3 Hyaline); Pathc Cast-AUWi Flag 0.14 (0-2.49); RBC/HPF 0-3 HPF (0-3); Squamous Epithelial 0-3 HPF (0-3); WBC/HPF 0-3 HPF (0-3)
[2018-03-12] MEDS ORDERED: Fentanyl 100 MCG/2 ML VIAL ONE (00:54)
[2018-03-12] MEDS ORDERED: Morphine 4 MG/ML VIAL ONE (02:09)
[2018-03-12] MEDS ORDERED: Acetaminophen 325 MG TAB PO PRN (02:59)
[2018-03-12] MEDS ORDERED: Ondansetron ODT 4 MG TAB SL PRN (02:59)
[2018-03-12] MEDS ORDERED: Ondansetron HCl/PF 4 MG/2 ML Vial IVP PRN (02:59)
[2018-03-12 03:24] VITALS: BMI 19.0
--- NOTE | 2018-03-12 09:48 | CT ---
PRELIMINARY REPORT/[facility]/EMERGENTY AFTER-HOURS PROCEDURE CT Abdomen and Pelvis With Intravenous Contrast CLINICAL HISTORY: 72 years old, male; Pain; Abdominal pain; Localized; Lower; Patient HX: 86f presents with rlq pain th at started on friday. Patient denies nausea and vomiting. Denies diarrhea and constipation. Reports p ain in constant TECHNIQUE: Axial computed tomography images of the abdomen and pelvis with intravenous contrast. Coronal reformatted images were created and reviewed. COMPARISON: No relevant prior studies available. FINDINGS: Lung bases: Minimal bibasilar atelectasis and/or scarring. ABDOMEN: Liver: Normal. Gallbladder and bile ducts: Normal. Pancreas: Normal. Spleen: Normal. Adrenals: Normal. Kidneys and ureters: Normal. Stomach and bowel: Colonic diverticulosis. 4.4 x 3.6 cm gas and stool-containing duodenal diverticulu m. PELVIS: Appendix: No findings to suggest acute appendicitis. Bladder: Normal. Reproductive: Normal as visualized. ABDOMEN and PELVIS: Intraperitoneal space: Normal. No free air. No significant fluid collection. Bones/joints: Multilevel thoracolumbar spine degenerative changes, with dextroscoliosis of the lumbar spine. No acute fracture. No dislocation. Soft tissues: Normal. Vasculature: Atherosclerotic disease of the abdominal aorta and iliac arteries, with partially thromb osed infrarenal abdominal aortic aneurysm measuring 4.9 x 4.0 cm. No evidence of leakage or rupture. Atherosclerotic disease of the visualized distal thoracic aorta. Phleboliths in the pelvis. Lymph nodes: Normal. IMPRESSION: 1. No acute abdominal or pelvic abnormality. 2. Atherosclerotic disease of the abdominal aorta and iliac arteries, with partially thrombosed infra renal abdominal aortic aneurysm measuring 4.9 x 4.0 cm. No evidence of leakage or rupture. 3. Incidental/non-acute findings are described above. Thank you for allowing us to participate in the care of your patient. Dictated and Authenticated by: All Dean MD 03/12/2018 12:58 AM Central Time ([place] & [place]) FINAL REPORT CT ABDOMEN AND PELVIS WITH CONTRAST: HISTORY: Abdominal pain. COMPARISON: None. FINDINGS: There is extensive atherosclerotic plaque of the aortoiliac system. There is approximately 75% narro wing of the ostia of the superior mesenteric artery. A fusiform infrarenal abdominal aorta aneurysm measures up to 4.9 cm for a craniocaudal length of 5.6 cm. Extensive atherosclerotic plaque and narr owing of both femoral arteries. There is scarring in the lung bases. Moderate facet arthrosis in th e lower lumbar spine. Appearance of degenerative disease of the lower lumbar spine. Mild intrahepat ic biliary dilatation. IMPRESSION: The findings and impression are concordant with the preliminary report. POS: BEL
--- NOTE | 2018-03-12 09:52 | ULT ---
PRELIMINARY REPORT/[facility]/EMERGENTY AFTER-HOURS PROCEDURE US Abdomen Limited, Right Upper Quadrant CLINICAL HISTORY: 72 years old, male; Pain and signs and symptoms; Nausea; Abdominal pain; Epigastric; Patient HX: Epig astric pain after eating, with nausea TECHNIQUE: Real-time ultrasound of the right upper quadrant with image documentation. COMPARISON: CT Abdomen Pelvis W Con 2018-03-12 00:15 FINDINGS: Liver: Normal. No mass. No intrahepatic bile duct dilation. Gallbladder: Gallbladder wall measures 2 mm in thickness. No gallstones or gallbladder sludge. Sonogr aphic Lennon 7 was reportedly negative. Common bile duct: Common bile duct measures 8 mm in diameter. No stones. Pancreas: Pancreatic head and body appear unremarkable. Pancreatic tail not well-visualized secondary to overlying bowel gas. Right kidney: Right kidney is normal in appearance, measuring 9.1 cm in length. No stones. No hydrone phrosis. IMPRESSION: 1. No sonographic evidence of acute intra-abdominal abnormality. 2. Mild dilation of the extrahepatic common bile duct, possibly chronic. No visible choledocholithias is. Thank you for allowing us to participate in the care of your patient. Dictated and Authenticated by: All Dean MD 03/12/2018 1:21 AM Central Time ([place] & [place]) FINAL REPORT GALLBLADDER ULTRASOUND: History: Right upper quadrant pain, abdominal pain, constipation, nausea. Comparison: None. FINDINGS/IMPRESSION: Findings and impression are concordant with the preliminary report. Recommend correlation with liver function test. POS: BEL
[2018-03-12] MEDS ORDERED: Metamucil PACK PO SCH (12:30)
[2018-03-12] MEDS: Dextrose 5 %-0.45 % NaCl 1,000 ML IV SCH ×2 (14:00→23:38)
[2018-03-12] MEDS ORDERED: Famotidine 20 MG TAB PO SCH (17:00)
[2018-03-12] MEDS: Carvedilol 6.25 MG TAB PO SCH (20:18)
[2018-03-12] MEDS: Melatonin 3 MG TAB PO SCH (20:18)
[2018-03-12] MEDS: Atorvastatin Calcium 20 MG TAB PO SCH (20:18)
[2018-03-12] MEDS: Finasteride 5 MG TAB PO SCH (20:19)
[2018-03-13 05:05] LABS: ALT (SGPT) 134 U/L (8-55); AST (SGOT) 72 U/L (5-34); Albumin 3.3 g/dL (3.4-4.8); Alkaline Phosphatase 116 U/L (40-150); Anion Gap 13 mmol/L (10-20); BUN (Urea Nitrogen) 16 mg/dL (8.4-25.7); Bilirubin, Direct 0.3 mg/dL (0.1-0.3); Bilirubin, Total 0.6 mg/dL (0.2-1.2); Calc. Creatinine Clearance 53 mL/min (70-130); Calcium 8.4 mg/dL (7.8-10.44); Carbon Dioxide 19 mmol/L (23-31); Chloride 110 mmol/L (98-107); Estimated GFR-MDRD 70; Globulin 2.5 g/dL (2.4-3.5); Glucose 90 mg/dL (80-115); Potassium 3.7 mmol/L (3.5-5.1); Protein, Total 5.8 g/dL (5.8-8.1); Sodium 138 mmol/L (136-145)
--- NOTE | 2018-03-13 06:27 | CON ---
DATE OF CONSULTATION: 03/12/2018 REFERRING PHYSICIAN: Johnathan Silva M.D. REASON FOR CONSULTATION: Abdominal pain, acute pancreatitis. HISTORY OF PRESENT ILLNESS: Mr. Neville Fernández is a very pleasant fragile-looking, 72-year-old, Cauc male, who is a [facility] resident. The patient had abdominal pain and nausea and was transf erred to the ER yesterday. In the ER, he was found to have abnormal LFTs and also elevated serum lip ase. The patient is admitted to the hospital because of acute pancreatitis. The patient's abdominal pain . He had nausea and felt like throwing, but he could not throw up. The patient is passin g flatus and also had a small stool today. The patient had no similar episodes in the past. The pat chen is a [facility] resident and does not have any access to drinking alcohol. However, he has be en in chronic alcohol intake until 1988 and quit drinking completely. He was also smoking very heavy at least a pack and half cigarettes per day until 11/2017. He was hospitalized in 11/2017 with acut e cerebrovascular accident with right-sided weakness. Subsequently, he was transferred to [facility]. His right leg is actually having more strength, but the right arm is still very weak. The patie nt came to ER and had abdominal CAT scan and abdominal sonogram. There is no peripancreatic inflamma tion or any mass lesion seen, but his CBD is upper limit of normal 88 mm. He is actually feeling bet ter today and his abdominal pain is lot less than before. He is tolerating clear liquid diet today. ALLERGIES: ASPIRIN. SOCIAL HISTORY: The patient is single. He is a [facility] resident since 11/2017 after his CVA. He is a chronic smoker and he has 50-year history of smoking until 11/2017 and quit smoking. Alcohol intake until 1988 and he quit drinking completely. No history of drug abuse. MEDICAL ILLNESSES: 1. Status post cerebrovascular accident with residual right-sided weakness. 2. COPD. 3. Benign prostatic hypertrophy. SURGERIES: Status post right shoulder surgery and also hemorrhoidectomy. NEUROPSYCHIATRIC HISTORY: Anxiety, depression. MEDICATIONS: List reviewed which include amlodipine, atorvastatin, Celexa, Citrucel, famotidine, fin asteride. FAMILY HISTORY: His mother had female cancer. REVIEW OF SYSTEMS: A 10-point system reviewed. Constitutional: No recent weight loss. No fever or chills. His activities limited because of recent cerebrovascular accident. Respiratory system: No coughing, no hemoptysis, no dyspnea. Cardiovascular system: No chest pain, no palpitation. No dys pnea, orthopnea, or PND. Gastrointestinal: As in history of present illness. Genitourinary: Histo ry of frequency of urination and also hesitancy of urination. No hematuria. Musculoskeletal: Unrem arkable. Neuropsychiatry: Depression, anxiety. PHYSICAL EXAMINATION: GENERAL: This is a fragile-looking, elderly, male who appears comfortable. He is awake, a lert, and communicative. He is in no distress. VITAL SIGNS: Temperature 98.2 degrees Fahrenheit, pulse is 59, blood pressure is 126/65. HEENT: He is not icteric. NECK: Supple. No adenitis or thyromegaly noted. CARDIOVASCULAR SYSTEM: First and second heart sounds normal. LUNGS: Clear to auscultation. ABDOMEN: Soft. Abdomen is mildly tender over the epigastric area. There is no rebound or guarding. No organomegaly or masses. EXTREMITIES: Right leg has movement, but he is still mildly weak. The right upper extremity is very weak. LABORATORY DATA AND IMAGING: Sodium 136, potassium 3.6, chloride 103, bicarbonate 20, BUN is 27, cre atinine 1.24, glucose 126, calcium 8.2, bilirubin 1, AST is 394, ALT 252, alkaline phosphatase 183, l ipase is 1967. CPK MB is 2.1. Abdominal sonogram shows no gallstones, the bile duct is slightly dilated. The pancreas appears norm al. The CAT scan shows no pancreatic pathology. He does appear to have atherosclerosis of the circu lation and also infrarenal aortic aneurysm with blood clot. CLINICAL IMPRESSION: 1. Acute pancreatitis most likely biliary as the liver function test is elevated. The abdominal son ogram showed no gallstones. It is possible that the patient could have passed a stone or he still capps s stone left in the bile duct. He seems to improve symptomatically as his abdominal pain is less sunita n before. The abdominal CAT scan does not show any pancreatic mass. 2. Recent cerebrovascular accident, 11/2017. 3. Benign prostatic hypertrophy. 4. Chronic obstructive pulmonary disease. RECOMMENDATION: Repeat LFTs and lipase tomorrow. The liver function test has come back normal. He may not need any further workup. The LFT has failed to come down, there is a possibility that the pa tient . I will review the liver panel and also lipase tomorrow. I will make further recommenda tions after the above tests.
[2018-03-13] MEDS: Metamucil PACK PO SCH (07:48)
[2018-03-13] MEDS: Clopidogrel Bisulfate 75 MG TAB PO SCH (07:49)
[2018-03-13] MEDS: Citalopram 20 MG TAB PO SCH (07:49)
[2018-03-13] MEDS: Famotidine 20 MG TAB PO SCH (07:49)
[2018-03-13] MEDS: Tamsulosin HCl 0.4 MG CAP PO SCH (07:49)
--- NOTE | 2018-03-13 09:29 | PRG ---
DATE OF SERVICE: 03/13/2018 HISTORY: This is a 72-year-old male who [facility]. The patient also has abdominal pain and nausea. During the evaluation he was found to have pancreatitis with elevated lip ase of close to 1000. Also, liver functions are elevated. The patient had no gallstones on CAT scan , abdominal sonogram. The patient is on a clear liquid diet and tolerating diet very well. He has m inimal abdominal discomfort, but no more nausea. He is passing flatus. It appears that patient most likely passed a common bile duct stone which could explain the elevated LFTs and also pancreatitis. The patient offers no complaints. PHYSICAL EXAMINATION: GENERAL: He appears comfortable. VITAL SIGNS: He is afebrile, temperature 98.6 degrees Fahrenheit, pulse is 67, blood pressure is 131 /72. CARDIOVASCULAR SYSTEM: First and second heart sounds normal. LUNGS: Clear to auscultation. ABDOMEN: Soft and mildly tender over the epigastric area. There is no rebound or guarding. Active bowel sounds. LABORATORY DATA: From today shows marked improvement in his liver function tests. The AST is down to 72, ALT down to 134, alkaline phosphatase 116, lipase down to 767. CLINICAL IMPRESSION: Biliary pancreatitis, the patient most likely passed a stone. RECOMMENDATION: 1. Follow up lipase and ____. If the labs come back to normal he may not need an ERCP. 2. Advance diet to full liquid diet and as tolerated.
[2018-03-13] MEDS: Amlodipine 10 MG TAB PO SCH (09:52)
[2018-03-13] MEDS: Carvedilol 6.25 MG TAB PO SCH ×2 (09:53→20:16)
--- NOTE | 2018-03-13 14:53 | HP ---
DATE OF ADMISSION: 03/11/2018 REASON FOR ADMISSION AND CHIEF COMPLAINT: Abdominal pain. HISTORY OF PRESENT ILLNESS: Mr. Fernández is a 72-year-old male with past medical history of CVA, came because of sudden onset of abdominal pain that started yesterday. The patient stated the abdominal pain is more diffuse and more in the lower part of the abdomen. He also has a problem with constipation. He felt his pain was probably due to constipation and he was unable to have any BM, w hich is very unusual for him. The pain got worse later. Pain is more in the lower abdomen, does not radiate. No nausea or vomiting. No fever, no shortness of breath. The patient was sent to the [facility] for evaluation. In the ER, the patient was evaluated and found to have a lower abdominal pain, but also found to have markedly elevated lipase of 1967 with elevated liver function tests. He rece ived morphine and was started on fluids, and Zofran, admitted for further evaluation and management. PAST MEDICAL HISTORY: 1. Hypertension. 2. Hyperlipidemia. 3. Status post cerebrovascular accident. 4. Chronic obstructive pulmonary disease. 5. Benign prostatic hypertrophy. PAST SURGICAL HISTORY: Right shoulder surgery. CURRENT MEDICATIONS: Amlodipine 10 mg daily, atorvastatin 20 mg daily, Pepcid 20 mg daily, Coreg 12. 5 b.i.d., Plavix 75 mg daily, Celexa 20 mg daily, melatonin 3 mg at bedtime, Flomax 0.4 mg daily. ALLERGIES: ASPIRIN causes anaphylaxis. FAMILY HISTORY: Nothing of interest. SOCIAL HISTORY: The patient lives in alf. No history of smoking. History of drinking many years ago, quit drinking about 30 years ago. REVIEW OF SYSTEMS: Cardiovascular: No chest pain, no shortness of breath. Respiratory: No fever o r cough. Gastrointestinal: Has abdominal pain . Central nervous system: No headache, no dizz iness. PHYSICAL EXAMINATION: GENERAL: The patient is alert, awake, and oriented x3. VITAL SIGNS: Temperature 98, pulse 58, respiratory rate 20, blood pressure 144/69. HEENT: Head is normocephalic and atraumatic. Pupils are equal and reactive to light. Nasopharynx i s pale and dry. Hard and soft palate, no lesions seen. SKIN: Skin turgor decreased. NECK: Supple. No JVD. LUNGS: Bilateral air entry present, no rales, no rhonchi. HEART: S1 and S2, regular. GASTROINTESTINAL: Abdomen is soft. Tender in right and left lower quadrants. No guarding. No rigi dity. Bowel sounds present. CENTRAL NERVOUS SYSTEM: No new focal deficit. LABORATORY AND X-RAY FINDINGS: CBC shows WBC of 12, hemoglobin of 11, hematocrit of 30, platelets 18 7. Metabolic panel: Sodium 136, AST 394, ALT 252. Alkaline phosphatase 183. Serum lipase 99. Uri nalysis, negative. CT scan of the abdomen reported as . Ultrasound of the abdomen revealed no gallstones, but evidence of mild dilatation of extrahepatic common bile duct, possibly chronic. EKG shows normal sinus rhythm, no acute ST-T wave changes seen. ASSESSMENT: 1. Acute pancreatitis. 2. Abdominal pain secondary to acute pancreatitis. 3. Status post cerebrovascular accident. 4. Hypertension. 5. Hyperlipidemia. PLAN: 1. Vital signs q.4 hours. 2. Activities: As tolerated. 3. Allergies: ASPIRIN. 4. IV fluids: D5 half at 80 mL per hour. 5. Diet: Clear liquids. 6. Continue alf medications. 7. GI consult. 8. Morphine p.r.n.
[2018-03-13] MEDS: Dextrose 5 %-0.45 % NaCl 1,000 ML IV SCH (14:58)
[2018-03-13] MEDS: Melatonin 3 MG TAB PO SCH (20:15)
[2018-03-13] MEDS: Dicyclomine 10 MG CAP PO SCH (20:16)
[2018-03-13] MEDS: Atorvastatin Calcium 20 MG TAB PO SCH (20:16)
[2018-03-13] MEDS: Finasteride 5 MG TAB PO SCH (20:16)
[2018-03-14] MEDS: Dextrose 5 %-0.45 % NaCl 1,000 ML IV SCH ×3 (03:12→15:41)
[2018-03-14 04:52] LABS: #Eosinphils 0.3 thou/uL (0.0-0.7); #Lymphocytes 1.5 thou/uL (1.20-3.40); #Monocytes 0.7 thou/uL (0.11-0.59); #Neutrophils 4.8 thou/uL (1.40-6.50); %Basophils 0.3 % (0.0-1.0); %Eosinophils 3.5 % (0.0-10.0); %Lymphocytes 20.7 % (21.0-51.0); %Monocytes 9.8 % (0.0-10.0); %Neutrophils 65.7 % (42.0-75.0); Hemoglobin 10.9 g/dL (14.0-18.0); Mean Corpuscular HGB CONC 34.9 g/dL (32.0-36.0); Mean Corpuscular Hemoglobin 32.7 pg (27.0-31.0); Mean Corpuscular Volume 93.7 fL (78.0-98.0); Platelet Count 169 thou/uL (130-400); Red Blood Cell (RBC) Count 3.33 mill/uL (4.70-6.10); White Blood Cell (WBC) Count 7.4 thou/uL (4.8-10.8)
[2018-03-14 05:16] LABS: ALT (SGPT) 92 U/L (8-55); AST (SGOT) 40 U/L (5-34); Albumin 3.4 g/dL (3.4-4.8); Alkaline Phosphatase 119 U/L (40-150); Anion Gap 14 mmol/L (10-20); BUN (Urea Nitrogen) 11 mg/dL (8.4-25.7); Bilirubin, Total 0.5 mg/dL (0.2-1.2); Calc. Creatinine Clearance 56 mL/min (70-130); Calcium 8.8 mg/dL (7.8-10.44); Carbon Dioxide 19 mmol/L (23-31); Chloride 108 mmol/L (98-107); Estimated GFR-MDRD 76; Globulin 2.8 g/dL (2.4-3.5); Glucose 108 mg/dL (80-115); Potassium 3.5 mmol/L (3.5-5.1); Protein, Total 6.2 g/dL (5.8-8.1); Sodium 137 mmol/L (136-145)
[2018-03-14] MEDS: Citalopram 20 MG TAB PO SCH (07:57)
[2018-03-14] MEDS: Dicyclomine 10 MG CAP PO SCH ×3 (07:57→20:15)
[2018-03-14] MEDS: Famotidine 20 MG TAB PO SCH (07:57)
[2018-03-14] MEDS: Amlodipine 10 MG TAB PO SCH (07:58)
[2018-03-14] MEDS: Clopidogrel Bisulfate 75 MG TAB PO SCH (07:58)
[2018-03-14] MEDS: Carvedilol 6.25 MG TAB PO SCH ×2 (08:03→20:15)
[2018-03-14] MEDS: Tamsulosin HCl 0.4 MG CAP PO SCH (08:03)
[2018-03-14] MEDS: Metamucil PACK PO SCH (08:03)
--- NOTE | 2018-03-14 12:56 | PRG ---
DATE OF SERVICE: 03/14/2018 REASON FOR CONSULTATION: Pancreatitis. SUBJECTIVE: The patient states that last night, he did have an increased flare of his midepigastric abdominal pain, but has since improved this morning. He states that he continues to have mid epigastric/periumbilical abdominal pain, but has much improved when compared to admission. He does endorse some nausea, but no actual emesis. Currently, denies fevers, chills, GI bleeding, diarrhea or constipation. OBJECTIVE: VITAL SIGNS: Temperature 97.7, pulse 56, blood pressure 178/75, respiratory rate 18, satting 95% on room air. GENERAL: Patient is lying in bed in no acute distress. Alert and oriented x4. CARDIOVASCULAR: Regular rate and rhythm. PULMONARY: Clear to auscultation bilaterally. ABDOMEN: Normoactive bowel sounds, soft, nondistended, mildly tender to palpation in the epigastric/periumbilical regions. EXTREMITIES: No cyanosis, clubbing or edema. LABORATORY DATA: CBC with a white blood cell count of 7.4, hemoglobin 10.9, hematocrit 31.2, platelets 169. Chemistry with sodium of 137, potassium 3.5, chloride 108, CO2 19, BUN 11, creatinine 0.98, glucose 108, AST 40, ALT 92, alkaline phosphatase 119, total bilirubin 0.5. IMAGING DATA: No current GI imaging is available for review. ASSESSMENT AND PLAN: The patient is a 72-year-old male with past medical history of benign prostatic hypertrophy, chronic obstructive pulmonary disease, anxiety, depression and cerebrovascular accident with residual right hemiparesis , presenting with acute pancreatitis. PANCREATITIS: The patient initially presented to the hospital from residential with increased abdominal pain and nausea on 03/11/2018. Upon evaluation in the [facility], he was noted to have significantly elevated LFTs as well as an elevated serum lipase consistent with pancreatitis; however, with the elevation in his LFTs, there was also some concern for choledocholithiasis/ gallstone pancreatitis. He subsequently underwent a right upper quadrant ultrasound which did show the common bile duct dilated to the upper limit of normal around 8 mm. However, CT of the abdomen and pelvis obtained on 2017 showed normal gallbladder and bile ducts as well as normal appearing pancreas not consistent with choledocholithiasis. Since admission, his LFTs have been subsequently down-trending with his AST, alkaline phosphatase, and total bilirubin now normal and ALT mildly elevated at 92. At this point, this could have been due to choledocholithiasis with gallstone pancreatitis, but with a stone that has since passed and almost normalization of his LFTs in the meantime. RECOMMENDATIONS: 1. Would continue to monitor the patient clinically for worsening abdominal pain or fever that might herald worsening pancreatitis. 2. Will consult General Surgery service for evaluation of possible cholecystectomy in light of working diagnosis of gallstone pancreatitis. 3. Would continue oral feeding with low fat diet. 4. Pain control per primary team. 5. Would continue to trend LFTs daily for possible biliary obstruction. There is no need to trend lipase as it does not portend prognosis. We will continue to follow. Please call with any questions. SERGEY
[2018-03-14] MEDS ORDERED: Acetaminophen 1,000 MG in Premix Bag 1 BAG IVPB SCH (16:30)
[2018-03-14] MEDS: Melatonin 3 MG TAB PO SCH (20:14)
[2018-03-14] MEDS: Finasteride 5 MG TAB PO SCH (20:15)
[2018-03-14] MEDS: Atorvastatin Calcium 20 MG TAB PO SCH (20:15)
--- NOTE | 2018-03-14 20:56 | HP ---
HISTORY OF PRESENT ILLNESS: Neville Fernández is a 72-year-old male patient who suffered a stroke in with right hemiplegia but has regained strength enough to be ambulatory with a cane. He conval esced at [facility] and then now prior to this hospitalization was at [facility]. He amador ffered a bit of abdominal pain and was admitted on 03/12/2018, Dr. Silva. He was seen by Dr. Ra headley and Dr. Neumann, so I am in coverage this weekend. He suffered pancreatitis. His liver functi on tests were elevated on admission, bilirubin normal, AST, ALT slightly elevated were improving. Li pase is improving. Ultrasound of gallbladder was normal. Patient denies having prior history of kvng iary symptoms. I have been asked to see him regarding consideration of cholecystectomy. The patient has a history of alcoholism but has not drank alcohol in 30 years. He has enjoyed tobacco cessation since his stroke in November. Prior to that, he smoked 1 pack per day. MEDICATIONS: Melatonin 3 mg at bedtime, Pepcid 20 mg at 0900, Lipitor 20 mg at bedtime, Tylenol p.r. n., Flomax 0.4 mg a day, Remeron 15 mg at bedtime, Plavix 75 mg a day, Coreg 12.5 mg b.i.d., Proscar 5 mg a day, Celexa 20 mg a day, amlodipine daily. PAST SURGICAL HISTORY: Hemorrhoidectomy. PAST MEDICAL HISTORY: Hypertension, recent stroke. REVIEW OF SYSTEMS: Noncontributory. DIAGNOSTIC DATA: Echocardiogram in 11/28/2017, no significant findings. PHYSICAL EXAMINATION: HEENT: Unremarkable. LUNGS: Clear to auscultation. CARDIAC: Regular rate and rhythm without murmur or gallop. ABDOMEN: Soft, nontender. EXTREMITIES: Unremarkable. NEUROLOGIC: Right hemiplegia. Speech is normal. He is coherent, alert and oriented and appropriate ly responsive. IMAGING: Ultrasound results normal. LABORATORIES: Recovering pancreatitis. ASSESSMENT AND PLAN: 1. Pancreatitis, suspect biliary, bile duct is 8 mm, upper limits normal. Echocardiogram in November, 55-60% LV ejection fraction. I would recommend laparoscopic cholecystectomy and cholangiogram. Risk s of infection, bleeding, reoperation discussed. Questions answered and biliary injury risk discusse d. I have discussed this with the patient's daughter speaker phone telephone and both wished to proc eed with laparoscopic cholecystectomy given the options of observation versus cholecystectomy, cholan giograms. 2. Recent stroke recovering.
[2018-03-15] MEDS: Dextrose 5 %-0.45 % NaCl 1,000 ML IV SCH ×3 (03:59→23:17)
[2018-03-15 04:57] LABS: #Eosinphils 0.3 thou/uL (0.0-0.7); #Lymphocytes 1.5 thou/uL (1.20-3.40); #Monocytes 0.6 thou/uL (0.11-0.59); #Neutrophils 4.1 thou/uL (1.40-6.50); %Basophils 0.7 % (0.0-1.0); %Eosinophils 4.8 % (0.0-10.0); %Lymphocytes 22.7 % (21.0-51.0); %Monocytes 8.8 % (0.0-10.0); %Neutrophils 63.2 % (42.0-75.0); Hemoglobin 11.4 g/dL (14.0-18.0); Mean Corpuscular HGB CONC 34.3 g/dL (32.0-36.0); Mean Corpuscular Volume 93.2 fL (78.0-98.0); Platelet Count 183 thou/uL (130-400); RBC Distribution Width 11.8 % (11.5-14.5); Red Blood Cell (RBC) Count 3.57 mill/uL (4.70-6.10); White Blood Cell (WBC) Count 6.5 thou/uL (4.8-10.8)
[2018-03-15 05:27] LABS: ALT (SGPT) 66 U/L (8-55); AST (SGOT) 22 U/L (5-34); Albumin 3.4 g/dL (3.4-4.8); Alkaline Phosphatase 108 U/L (40-150); Anion Gap 11 mmol/L (10-20); BUN (Urea Nitrogen) 10 mg/dL (8.4-25.7); Bilirubin, Total 0.4 mg/dL (0.2-1.2); Calc. Creatinine Clearance 55 mL/min (70-130); Calcium 8.8 mg/dL (7.8-10.44); Carbon Dioxide 21 mmol/L (23-31); Chloride 106 mmol/L (98-107); Estimated GFR-MDRD 74; Globulin 2.8 g/dL (2.4-3.5); Glucose 106 mg/dL (80-115); Lipase 314 U/L (8-78); Potassium 3.4 mmol/L (3.5-5.1); Protein, Total 6.2 g/dL (5.8-8.1); Sodium 135 mmol/L (136-145)
[2018-03-15] MEDS: Carvedilol 6.25 MG TAB PO SCH ×2 (06:04→21:10)
[2018-03-15] MEDS: Famotidine 20 MG TAB PO SCH (09:13)
[2018-03-15] MEDS: Clopidogrel Bisulfate 75 MG TAB PO SCH (09:13)
[2018-03-15] MEDS: Amlodipine 10 MG TAB PO SCH (09:13)
[2018-03-15] MEDS: Metamucil PACK PO SCH (09:13)
[2018-03-15] MEDS: Dicyclomine 10 MG CAP PO SCH ×3 (09:13→21:11)
[2018-03-15] MEDS: Citalopram 20 MG TAB PO SCH (09:13)
[2018-03-15] MEDS: Tamsulosin HCl 0.4 MG CAP PO SCH (09:22)
[2018-03-15] MEDS ORDERED: Levofloxacin 500 mg/D5W 100 ml Premix Bag ONE (09:49)
[2018-03-15] MEDS ORDERED: Bupivacaine HCl 0.5%/Epinephrine 1:200,000/PF 30 ml Vial ONE (10:49)
[2018-03-15] MEDS ORDERED: Iothalamate Meglumine 60% 50 ML VIAL FS ONE (10:49)
[2018-03-15] MEDS ORDERED: Fentanyl 100 MCG/2 ML VIAL ONE (10:53)
[2018-03-15] MEDS ORDERED: SUGAMMADEX SODIUM 500 MG/5 ML VIAL ONE (12:10)
[2018-03-15] MEDS ORDERED: Ibuprofen 600 MG TAB PO PRN (12:13)
[2018-03-15] MEDS ORDERED: Acetaminophen 500 MG TAB PO PRN (12:13)
[2018-03-15] MEDS ORDERED: Ondansetron HCl/PF 4 MG/2 ML Vial IVP PRN (12:22)
[2018-03-15] MEDS ORDERED: Promethazine HCl 25 MG/ML VIAL IM PRN (12:22)
[2018-03-15] MEDS ORDERED: Promethazine HCl 25 MG/ML VIAL SLOW IVP PRN (12:22)
--- NOTE | 2018-03-15 13:06 | PRG ---
DATE OF SERVICE: 03/15/2018 REASON FOR CONSULTATION: Pancreatitis. SUBJECTIVE: The patient was unable to be interviewed today being due to already taken down for lapar oscopic cholecystectomy. Per nursing staff, there are no acute events or problems overnight with min imal epigastric abdominal pain from the patient this morning. OBJECTIVE: VITAL SIGNS: Temperature 97.9, pulse 54, blood pressure 149/61, respiratory rate 18, satting 96% on room air. Physical examination could not be performed. LABORATORY DATA: CBC with white blood cell count of 6.5, hemoglobin 11.4, hematocrit 33.3, platelets 183. Chemistry with sodium of 135, potassium 3.4, chloride 106, CO2 21, BUN 10, creatinine 1, gluco se 106, AST 22, ALT 66, alkaline phosphatase 108, total bilirubin 0.4. IMAGING DATA: No current GI imaging is available for review. ASSESSMENT AND PLAN: The patient is a 72-year-old male with past medical history of benign prostatic hypertrophy, chronic obstructive pulmonary disease, anxiety, depression and cerebrovascular accident with right-sided residual weakness, presenting with acute pancreatitis secondary to gallstones. GALLSTONE PANCREATITIS: The patient initially presented to the hospital from the senior living with i ncreased abdominal pain and nausea on 03/11/2018. Upon initial evaluation, he was noted to have sign ificantly elevated LFTs and serum lipase concerning for gallstone pancreatitis. He subsequently unde rwent a right upper quadrant ultrasound which did show the common bile duct dilated to the upper limi t normal around 8 mm. However, the CT of the abdomen and pelvis obtained on 03/11/2018 showed no abn ormalities within the common bile duct. Since admission, his LFTs have subsequently down-trended wit h all of them normal at this time except for AST minimally elevated at 66. At this point, the most l ikely explanation would be gallstone pancreatitis contributing to his current clinical picture and la boratory data. Currently he is in the operating suite for laparoscopic cholecystectomy for prophylax is against further bouts of pancreatitis. RECOMMENDATIONS: 1. Agree with laparoscopic cholecystectomy with possible IOC for evaluation of gallstone pancreatiti s and treatment for further bouts of possible pancreatitis. 2. Continue oral feeding with low fat diet. 3. Pain control per primary team. 4. Would continue to trend LFTs in the postoperative period for further management per General Surge ry team. We will sign off at this time. Please call with any additional questions.
--- NOTE | 2018-03-15 13:15 | OP ---
DATE OF PROCEDURE: 03/15/2018 PREOPERATIVE DIAGNOSES: Biliary pancreatitis, cholelithiasis, cholecystitis. POSTOPERATIVE DIAGNOSES: Biliary pancreatitis, cholelithiasis, cholecystitis. PROCEDURES: Laparoscopic video cholecystectomy, normal intraoperative cholangiogram using fluoroscop y noting dilated common hepatic, common bile, left and right hepatic ducts without filling defects wi th normal emptying into a tapered distal common bile duct into the duodenum. SURGEON: Dr. Dill. ANESTHESIA: General. Local 0.5% Marcaine with epinephrine, 30 mL. DESCRIPTION OF PROCEDURE: The patient was taken to the operating room under general anesthesia. Abd omen was prepared with ChloraPrep, draped in routine fashion. Local anesthetic infiltrated into the skin and subcutaneous tissue about each port site. Infraumbilical incision made and pneumoperitoneum to 15 mmHg obtained with Veress needle, replacing it with a 5 port video laparoscope inserted. Live r appeared to be normal. Grossly, the abdominal cavity was unremarkable. Right subxiphoid incision made and 11 port placed. Right subcostal incision made in mid clavicular axillary lines and 5 mm por ts placed. Fundus of gallbladder grasped and reflected cephalad. Infundibulum grasped it laterally. Cystic artery and duct dissected free. Critical view obtained. Cystic artery and duct identified and cystic artery double clipped proximally. Cystic duct singly clipped on the gallbladder side ____ cholangiocath inserted and cholangiogram was obtained using fluoroscopy revealing the above findings . Cholangiocatheter removed. Cystic duct doubly clipped and cystic artery and duct divided. The ga llbladder dissected free from the liver bed obtaining good hemostasis prior to division of final mike toneal attachments. Gallbladder and small stones removed and submitted to Pathology. Good hemostasi s ensured with the cautery. Irrigant and pneumoperitoneum evacuated. All instruments removed and al l skin incisions approximated with interrupted subdermal 4-0 Monocryl and DermaGlue applied.
[2018-03-15] MEDS ORDERED: ePHEDrine/0.9% NaCl/PF SYRINGE 50 mg/10 ml ONE (15:02)
[2018-03-15] MEDS ORDERED: PHENYLEPHRINE-NS 100 MCG/ML 10 ML SYRINGE ONE (15:02)
[2018-03-15] MEDS ORDERED: Dexamethasone 20 MG/5 ML VIAL ONE (15:02)
[2018-03-15] MEDS ORDERED: Lidocaine 1% PF 5 ML VIAL ONE (15:02)
[2018-03-15] MEDS ORDERED: PROPOFOL 200 MG/20 ML VIAL ONE (15:02)
[2018-03-15] MEDS ORDERED: Glycopyrrolate 0.2 MG/ML 5 ML SYRINGE ONE (15:02)
[2018-03-15] MEDS ORDERED: Ondansetron HCl/PF 4 MG/2 ML Vial ONE (15:02)
[2018-03-15] MEDS: traMADol HCl 50 MG TAB PO PRN ×2 (15:07→21:10)
--- NOTE | 2018-03-15 20:19 | RAD ---
INTRAOPERATIVE CHOLANGIOGRAM ONE VIEW: 03/15/2018 HISTORY: A 72-year-old male with epigastric abdominal pain and dilation of dilated biliary tree. FINDINGS: Contrast injection into the cystic duct stump demonstrates diffuse moderate dilation of the entire co mmon bile duct, the common hepatic duct, the left and right hepatic ducts and their proximal branches , and the proximal portion of the pancreatic duct. Contrast material enters the lumen of the duodenu m. No filling defect is identified. IMPRESSION: Diffuse dilation of the biliary tree without evidence of obstructing lesion. POS: JIN
[2018-03-15] MEDS: Atorvastatin Calcium 20 MG TAB PO SCH (21:10)
[2018-03-15] MEDS: Melatonin 3 MG TAB PO SCH (21:11)
[2018-03-15] MEDS: Finasteride 5 MG TAB PO SCH (21:11)
[2018-03-15] MEDS: Enoxaparin Sodium 40 MG/0.4 ML SYRINGE SC SCH (23:13)
--- NOTE | 2018-03-16 02:44 | CON ---
CONSULTATION AND PROCEDURE NOTE DATE OF CONSULTATION: 03/15/2018 REASON FOR CONSULTATION: Incomplete bladder emptying, unable to place Bruce catheter. HISTORY OF PRESENT ILLNESS: Mr. Fernández is a 72-year-old gentleman who was admitted to the hospital on 03/12/2018 for evaluation of abdominal pain. He was initially found to have cholecystitis and is now status post laparoscopic cholecystectomy earlier today on 03/15/2018. He has been complaining of some abdominal discomfort postoperatively today. He was voiding small amounts frequently. He states that the voiding pattern was not much significant than his voiding pattern at home, but a bladder scan revealed a residual of 400 mL. For that reason, attempts were made to place Bruce catheter. Multiple attempts were made, but they were unsuccessful as a result of obstruction near the tip of the penis. For that reason, urologic consultation was obtained. The patient denies any prior urologic history. He has no history of prostate surgery. He has been placed on a medication for enlarged prostate. He does not have a urologist. PAST MEDICAL HISTORY: CVA, recently he has been in rehab for the last couple of months since his CVA, prior history of alcoholism. CHRONIC MEDICATIONS: Pepcid, Lipitor, Flomax, Remeron, Plavix, Coreg, Proscar, Celexa, and amlodipine. PAST SURGICAL HISTORY: 1. Hemorrhoidectomy. 2. Cholecystectomy on 03/15/2018. ALLERGIES: No known drug allergies. SOCIAL HISTORY: Prior history of heavy drinking, but he has not drink alcohol in 30 years. He quit smoking cigarettes after a stroke in November prior to that he smokes 1 pack cigarettes per day. REVIEW OF SYSTEMS: Respiratory: No shortness of breath. Cardiovascular: Denies chest pain or palpitations. Gastrointestinal: Please see history of present illness. Genitourinary: Please see history of present illness. Neurologic: Right-sided hemiplegia since stroke in November. The penis was sterilely prepped, filiform was passed and could not be passed up to the level of prostatic urethra, but at that point, I could not be passed into the bladder. Sequential dilation of the urethra was performed with filliforms and followers up to 18 Fijian. A 16-Fijian coude catheter could then be passed. IMPRESSION: This patient had a meatal stricture preventing catheter placement and after multiple attempts of catheter placement, apparently has a false passage in the prostatic urethra. The urethral stricture was dilated with filiform and followers and a coude catheter could be utilized to bypass the false passage. This catheter should be left in place for approximately 1 week before catheter removal. Catheter removal can be performed at the rehab facility if desired, but no sooner than 1 week. RECOMMENDATIONS: Catheter removal in 1 week. MTDD
[2018-03-16 04:44] LABS: #Lymphocytes 0.8 thou/uL (1.20-3.40); #Monocytes 0.5 thou/uL (0.11-0.59); #Neutrophils 7.9 thou/uL (1.40-6.50); %Basophils 0.1 % (0.0-1.0); %Eosinophils 0.1 % (0.0-10.0); %Lymphocytes 8.4 % (21.0-51.0); %Monocytes 5.5 % (0.0-10.0); %Neutrophils 85.8 % (42.0-75.0); Hemoglobin 12.6 g/dL (14.0-18.0); Mean Corpuscular Hemoglobin 32.2 pg (27.0-31.0); Mean Platelet Volume 6.7 fL (7.4-10.4); Platelet Count 225 thou/uL (130-400); RBC Distribution Width 11.7 % (11.5-14.5); Red Blood Cell (RBC) Count 3.93 mill/uL (4.70-6.10); White Blood Cell (WBC) Count 9.2 thou/uL (4.8-10.8)
[2018-03-16 05:03] LABS: ALT (SGPT) 69 U/L (8-55); AST (SGOT) 31 U/L (5-34); Albumin 3.4 g/dL (3.4-4.8); Alkaline Phosphatase 115 U/L (40-150); Anion Gap 13 mmol/L (10-20); BUN (Urea Nitrogen) 15 mg/dL (8.4-25.7); Bilirubin, Total 0.5 mg/dL (0.2-1.2); Calc. Creatinine Clearance 54 mL/min (70-130); Calcium 9.1 mg/dL (7.8-10.44); Carbon Dioxide 21 mmol/L (23-31); Chloride 102 mmol/L (98-107); Estimated GFR-MDRD 71; Globulin 3.2 g/dL (2.4-3.5); Glucose 170 mg/dL (80-115); Lipase 63 U/L (8-78); Potassium 3.9 mmol/L (3.5-5.1); Protein, Total 6.6 g/dL (5.8-8.1); Sodium 132 mmol/L (136-145)
[2018-03-16] MEDS: traMADol HCl 50 MG TAB PO PRN ×2 (05:31→20:41)
[2018-03-16] MEDS: Tamsulosin HCl 0.4 MG CAP PO SCH (07:39)
[2018-03-16] MEDS: Dicyclomine 10 MG CAP PO SCH ×2 (07:39→15:54)
[2018-03-16] MEDS: Clopidogrel Bisulfate 75 MG TAB PO SCH (07:39)
[2018-03-16] MEDS: Famotidine 20 MG TAB PO SCH (07:39)
[2018-03-16] MEDS: Amlodipine 10 MG TAB PO SCH (07:39)
[2018-03-16] MEDS: Carvedilol 6.25 MG TAB PO SCH ×2 (07:39→20:39)
[2018-03-16] MEDS: Citalopram 20 MG TAB PO SCH (07:39)
[2018-03-16] MEDS: Polyethylene Glycol 3350 17 GM Packet PO SCH (07:41)
[2018-03-16] MEDS: Metamucil PACK PO SCH (07:41)
--- NOTE | 2018-03-16 18:40 | PRG ---
DATE OF SERVICE: 03/16/2018 SUBJECTIVE: Neville Fernández is doing well after laparoscopic cholecystectomy performed yesterday. Ch olangiograms were normal. This morning, his white count is 9, hemoglobin 12. Basic metabolic profil e normal. Liver function tests normal. Overall, he is doing well. OBJECTIVE: LUNGS: Clear to auscultation. CARDIAC: Regular rate and rhythm without murmur or gallop. ABDOMEN: Soft, nontender. He has some postoperative urinary retention. Bruce catheter is in place. I am unsure of the retained volume. ASSESSMENT AND PLAN: Doing well post-cholecystectomy. We would recommend discharge home in a day or two. Urinary retention per medical, who placed a Bruce catheter.
[2018-03-16] MEDS: Melatonin 3 MG TAB PO SCH (20:38)
[2018-03-16] MEDS: Atorvastatin Calcium 20 MG TAB PO SCH (20:39)
[2018-03-16] MEDS: Enoxaparin Sodium 40 MG/0.4 ML SYRINGE SC SCH (20:39)
[2018-03-16] MEDS: Finasteride 5 MG TAB PO SCH (20:39)
[2018-03-16] MEDS: Dextrose 5 %-0.45 % NaCl 1,000 ML IV SCH (20:40)
[2018-03-17] MEDS: Dextrose 5 %-0.45 % NaCl 1,000 ML IV SCH ×2 (01:06→12:55)
[2018-03-17] MEDS: traMADol HCl 50 MG TAB PO PRN ×3 (03:21→22:50)
[2018-03-17] MEDS: Citalopram 20 MG TAB PO SCH (08:01)
[2018-03-17] MEDS: Carvedilol 6.25 MG TAB PO SCH ×2 (08:01→22:37)
[2018-03-17] MEDS: Clopidogrel Bisulfate 75 MG TAB PO SCH (08:01)
[2018-03-17] MEDS: Tamsulosin HCl 0.4 MG CAP PO SCH (08:02)
[2018-03-17] MEDS: Amlodipine 10 MG TAB PO SCH (08:02)
[2018-03-17] MEDS: Metamucil PACK PO SCH (08:03)
[2018-03-17] MEDS: Polyethylene Glycol 3350 17 GM Packet PO SCH (08:03)
[2018-03-17] MEDS: Famotidine 20 MG TAB PO SCH (10:48)
--- NOTE | 2018-03-17 17:38 | PRG ---
DATE OF SERVICE: 03/17/2018 SUBJECTIVE: Neville Fernández is doing well today. He is tolerating his diet. He has had bowel moveme nts. OBJECTIVE: LUNGS: Clear to auscultation. CARDIAC: Regular rate and rhythm without murmur or gallop. ABDOMEN: Soft, nontender, nondistended. Surgical wounds look good. ASSESSMENT AND PLAN: The patient suffered urinary retention. Dr. Frausto performed ureter dilatatio n at the bedside and the catheter placed. This catheter was placed and should be left in place for a week per Urology, Dr. Frausto. Patient overall is doing well and ready for discharge home from a amador rgical standpoint. At this point, I will see him as needed. Please call if necessary.
[2018-03-17] MEDS: Finasteride 5 MG TAB PO SCH (22:38)
[2018-03-17] MEDS: Atorvastatin Calcium 20 MG TAB PO SCH (22:38)
[2018-03-17] MEDS: Enoxaparin Sodium 40 MG/0.4 ML SYRINGE SC SCH (22:41)
[2018-03-17] MEDS: Melatonin 3 MG TAB PO SCH (22:50)
[2018-03-18] MEDS: Dextrose 5 %-0.45 % NaCl 1,000 ML IV SCH (00:48)
[2018-03-18 05:14] LABS: #Eosinphils 0.2 thou/uL (0.0-0.7); #Lymphocytes 2.4 thou/uL (1.20-3.40); #Neutrophils 6.2 thou/uL (1.40-6.50); %Basophils 0.2 % (0.0-1.0); %Lymphocytes 24.3 % (21.0-51.0); %Monocytes 9.9 % (0.0-10.0); %Neutrophils 63.5 % (42.0-75.0); Hemoglobin 11.1 g/dL (14.0-18.0); Mean Corpuscular HGB CONC 34.6 g/dL (32.0-36.0); Mean Corpuscular Hemoglobin 32.5 pg (27.0-31.0); Mean Corpuscular Volume 93.8 fL (78.0-98.0); Mean Platelet Volume 6.7 fL (7.4-10.4); Platelet Count 198 thou/uL (130-400); RBC Distribution Width 11.9 % (11.5-14.5); Red Blood Cell (RBC) Count 3.42 mill/uL (4.70-6.10); White Blood Cell (WBC) Count 9.8 thou/uL (4.8-10.8)
[2018-03-18 05:29] LABS: ALT (SGPT) 60 U/L (8-55); AST (SGOT) 39 U/L (5-34); Albumin 3.4 g/dL (3.4-4.8); Alkaline Phosphatase 91 U/L (40-150); Anion Gap 11 mmol/L (10-20); BUN (Urea Nitrogen) 14 mg/dL (8.4-25.7); Bilirubin, Direct 0.2 mg/dL (0.1-0.3); Bilirubin, Total 0.3 mg/dL (0.2-1.2); Calc. Creatinine Clearance 54 mL/min (70-130); Carbon Dioxide 26 mmol/L (23-31); Chloride 102 mmol/L (98-107); Estimated GFR-MDRD 72; Glucose 81 mg/dL (80-115); Potassium 3.6 mmol/L (3.5-5.1); Protein, Total 6.3 g/dL (5.8-8.1); Sodium 135 mmol/L (136-145)
[2018-03-18] MEDS: Clopidogrel Bisulfate 75 MG TAB PO SCH (08:15)
[2018-03-18] MEDS: Metamucil PACK PO SCH (08:15)
[2018-03-18] MEDS: Citalopram 20 MG TAB PO SCH (08:15)
[2018-03-18] MEDS: Polyethylene Glycol 3350 17 GM Packet PO SCH (08:15)
[2018-03-18] MEDS: Carvedilol 6.25 MG TAB PO SCH ×2 (08:15→20:28)
[2018-03-18] MEDS: Tamsulosin HCl 0.4 MG CAP PO SCH (08:15)
[2018-03-18] MEDS: Famotidine 20 MG TAB PO SCH (08:15)
[2018-03-18] MEDS: Amlodipine 10 MG TAB PO SCH (08:16)
[2018-03-18] MEDS: Enoxaparin Sodium 40 MG/0.4 ML SYRINGE SC SCH (20:27)
[2018-03-18] MEDS: Melatonin 3 MG TAB PO SCH (20:28)
[2018-03-18] MEDS: Finasteride 5 MG TAB PO SCH (20:28)
[2018-03-18] MEDS: Atorvastatin Calcium 20 MG TAB PO SCH (20:28)
[2018-03-18] MEDS ORDERED: Milk Of Magnesia 30 ML UDCUP PO PRN (22:14)
[2018-03-18] MEDS: Milk Of Magnesia 30 ML UDCUP PO SCH ×2 (22:49→22:50)
[2018-03-19] MEDS: Tamsulosin HCl 0.4 MG CAP PO SCH (08:09)
[2018-03-19] MEDS: Famotidine 20 MG TAB PO SCH (08:09)
[2018-03-19] MEDS: Polyethylene Glycol 3350 17 GM Packet PO SCH (08:09)
[2018-03-19] MEDS: Carvedilol 6.25 MG TAB PO SCH (08:09)
[2018-03-19] MEDS: Citalopram 20 MG TAB PO SCH (08:10)
[2018-03-19] MEDS: Clopidogrel Bisulfate 75 MG TAB PO SCH (08:10)
[2018-03-19] MEDS: Amlodipine 10 MG TAB PO SCH (08:10)
[2018-03-19 08:20] VITALS: BP 154/75
[2018-03-19] MEDS: Metamucil PACK PO SCH (08:20)
[2018-03-19 09:32] VITALS: TEMP 98.1
== END 2018-03-19 13:12 | DRG 417 ==
LOC: ERS 22:29 → T4-B 03-12 03:06
PROVIDERS: ADMIT Internal Medicine; ATTEND Internal Medicine
PROC: 0FT44ZZ Resection of Gallbladder, Percutaneous Endoscopic Approach (ICD-10-PCS; principal; 2018-03-15)
PROC: BF100ZZ Fluoroscopy of Bile Ducts using High Osmolar Contrast (ICD-10-PCS; 2018-03-15)
DX: K80.10 Calculus of gallbladder with chronic cholecystitis without obstruction (principal); K85.10 Biliary acute pancreatitis without necrosis or infection; I69.351 Hemiplegia and hemiparesis following cerebral infarction affecting right dominant side; J44.9 Chronic obstructive pulmonary disease, unspecified; I10 Essential (primary) hypertension; F41.9 Anxiety disorder, unspecified; F32.9 Major depressive disorder, single episode, unspecified; E78.5 Hyperlipidemia, unspecified; N40.0 Benign prostatic hyperplasia without lower urinary tract symptoms; R33.9 Retention of urine, unspecified; Z87.891 Personal history of nicotine dependence; Z88.6 Allergy status to analgesic agent; Z79.02 Long term (current) use of antithrombotics/antiplatelets; Z79.899 Other long term (current) drug therapy
CPT/HCPCS: 36415; 47532; 74177; 76705; 80048; 80053; 80076; 81003; 81015; 82553; 83605; 83690; 84484; 85025; 87045; 87046; 87324; 87449; 87899; 88304; 93005; 96361; 96374; 96375; A4216; G8978-GP-CL; G8979-GP-CJ; G8996-GN-CI; G8997-GN-CI; J0131; J0670; J1100; J1610; J1650; J1956; J2001; J2270; J2405; J2704; J3010; Q9961

== ENCOUNTER 2020-09-27 06:59 | Emergency (ER) | payer MEDICARE ==
[2020-09-27] MEDS ORDERED: Acetaminophen 500 MG TAB ONE (08:26)
== END 2020-09-27 09:22 | disposition home or self-care (01) ==
LOC: ERS 06:59
DX: R51.9 Headache, unspecified (principal); J44.9 Chronic obstructive pulmonary disease, unspecified; Z86.73 Personal history of transient ischemic attack (TIA), and cerebral infarction without residual deficits; N40.0 Benign prostatic hyperplasia without lower urinary tract symptoms; Z87.891 Personal history of nicotine dependence
CPT/HCPCS: 99284

== ENCOUNTER 2022-11-05 14:07 | Emergency (ER) | payer MEDICARE ==
[2022-11-05] MEDS ORDERED: Dicyclomine 20 MG TAB ONE (14:37)
[2022-11-05 14:51] LABS: #Basophils 0.1 thou/uL (0.0-0.2); #Eosinphils 0.2 thou/uL (0.0-0.7); #Lymphocytes 1.9 thou/uL (1.20-3.40); #Neutrophils 6.4 thou/uL (1.40-6.50); %Basophils 0.6 % (0.0-1.0); %Monocytes 10.1 % (0.0-10.0); %Neutrophils 67.3 % (42.0-75.0); Hemoglobin 11.2 g/dL (14.0-18.0); Mean Corpuscular HGB CONC 32.5 g/dL (32.0-36.0); Mean Corpuscular Hemoglobin 30.6 pg (27.0-31.0); Mean Corpuscular Volume 94.2 fl (78.0-98.0); Mean Platelet Volume 7.1 fL (7.4-10.4); Platelet Count 331 10x3/uL (130-400); RBC Distribution Width 13.6 % (11.5-14.5); Red Blood Cell (RBC) Count 3.65 mill/uL (4.70-6.10); White Blood Cell (WBC) Count 9.5 10x3/uL (4.8-10.8)
[2022-11-05 15:08] LABS: Bilirubin Negative (Negative); Blood, Urine 1+ (Negative); Clarity Turbid (Clear); Glucose, Urine (Dipstick) Normal (Negative); Ketone, Urine Negative (Negative); Leukocyte 500 Leu/uL (Negative); Nitrite Negative (Negative); Protein, Urine (Dipstick) 20 mg/dL (Neg-Trace); Specific Gravity, Urine 1.005 (1.002-1.036); Urobilinogen Normal mg/dL (Less than 2); pH, Urine 5.5 (5.0-9.0)
[2022-11-05 15:21] LABS: ALT (SGPT) 13 U/L (8-55); AST (SGOT) 19 U/L (5-34); Albumin 3.9 g/dL (3.4-4.8); Alkaline Phosphatase 71 U/L (40-110); Anion Gap 14 mmol/L (10-20); BUN (Urea Nitrogen) 25 mg/dL (8.4-25.7); Bilirubin, Total 0.3 mg/dL (0.2-1.2); Calc. Creatinine Clearance 0 mL/min (70-130); Calcium 9.4 mg/dL (7.8-10.44); Carbon Dioxide 16 mmol/L (23-31); Chloride 110 mmol/L (98-107); Estimated GFR 53; Globulin 3.7 g/dL (2.4-3.5); Glucose 116 mg/dL (83-110); Lipase 26 U/L (8-78); Magnesium 1.7 mg/dL (1.6-2.6); Potassium 3.8 mmol/L (3.5-5.1); Protein, Total 7.6 g/dL (5.8-8.1); Sodium 136 mmol/L (136-145)
[2022-11-05 15:23] LABS: Bacteria/HPF 2+ HPF (None Seen); Squamous Epithelial 0-3 HPF (0-3)
[2022-11-05] MEDS ORDERED: hydrALAZINE 20 MG/ML VIAL ONE (16:38)
== END 2022-11-05 17:39 ==
LOC: ERS 14:07
DX: R91.8 Other nonspecific abnormal finding of lung field (principal); I71.40 Abdominal aortic aneurysm, without rupture, unspecified; N39.0 Urinary tract infection, site not specified; K21.9 Gastro-esophageal reflux disease without esophagitis; I10 Essential (primary) hypertension; J44.9 Chronic obstructive pulmonary disease, unspecified; Z87.891 Personal history of nicotine dependence; Z79.899 Other long term (current) drug therapy
CPT/HCPCS: 74177; 80053; 83690; 83735; 85025; 87077; 87086; 87186; 93005; J0360; 36415; 81003; 81015; 96374